=== PATIENT | female | born 1965 | race Caucasian/White ===

== ENCOUNTER 2021-03-26 10:10 | Emergency (ER) | payer MEDICARE, MEDICAID, SELFPAY ==
[2021-03-26 10:32] VITALS: BP 123/87; PULSE 84; RESP 16; TEMP 36.8; O2SAT 100; BMI 25.4
--- NOTE | 2021-03-26 10:44 | XR_ITS ---
WS: [id number] Portable AP upright chest, 03/26/2021 Clinical Data: htn Comparison: None. Findings: No nodules, masses or effusions are seen. The heart is normal. The pulmonary vascularity is not increased. No pneumonia or pneumothorax is seen. XR/XR chest 1V portable [id number] Impression: Negative chest.
--- NOTE | 2021-03-26 10:45 | ECG_ITS ---
[facility] Test Date: 2021-03-26 Pat Name: Beth Trinh Department: Room: Gender: Female History Instructor: : 1965 Requested By: Joselo Delgado Order Number: [id number] Simone MD: Radha Bradley M.D. Measurements Intervals [place] Rate: 80 P: 60 AL: 163 QRS: 31 QRSD: 79 T: 52 QT: 385 QTc: 446 Interpretive Statements SINUS RHYTHM POSSIBLE LEFT ATRIAL ENLARGEMENT [-0.1mV P-WAVE IN V1/V2] LEFT VENTRICULAR HYPERTROPHY AND ST-T CHANGE [VOLTAGE CRITERIA PLUS ST/T ABNORMALITY] No previous ECG available for comparison Electronically Signed On 03-26-2021 16:03:25 MEDICAL REGISTRAR by Radha Bradley M.D. [id number]
--- NOTE | 2021-03-26 11:02 | W.ED.GENADLT ---
HPI - General Adult General: Chief complaint: General Medical Stated complaint: HTN/ GUERRA/ BLURRED VISION/ SOB Time Seen by Provider: 03/26/21 10:38 History of Present Illness: HPI narrative: Patient arrives via ambulance with complaint of hypertension. Patient states that she was diagnosed with some carotid stenosis 6 months ago and a tortuous right carotid artery. Patient feels that surgery needs to be done presently cardiology said the need to wait to do any surgery. She believes that her hypertension is were directly related to this carotid artery problem. Patient is a COPD her who continue to smoke. Patient denies any increased shortness of breath, chest pain or other related symptoms. Onset (ago): week(s) Associated symptoms: Reports no associated symptoms; Deny rash or vomiting Review of Systems Eyes: Denies: eye discharge ENMT: Denies: throat pain, oral sores or nasal congestion Card: Reports: other (Hypertension) Resp: Reports: non-productive cough; Denies: wheezing or stridor GI: Denies: vomiting or diarrhea Skin/Breast: Denies: rash PFSH ED PFSH: Medical History Anxiety Social History Smoking and tobacco status: current every day smoker cigarettes Alcohol intake: current Alcohol intake frequency: holidays/special occasions only Physical Exam Const: COMMON NORMALS: no acute distress (Child appears very well is playful in no distress) GENERAL APPEARANCE: cooperative HENMT: COMMON NORMALS: normocephalic, external ears normal, EAC's normal, TM's normal bilaterally and Normal external nose present HEAD & SCALP: normal to inspection and normocephalic FACE & SINUS: normal facial exam NOSE: Normal external nose present and No nasal discharge present EXTERNAL EAR: Yes external ears normal EXTERNAL AUDITORY CANAL: EAC's normal TYMPANIC MEMBRANE: TM's normal bilaterally MOUTH: Normal oral and palatal mucosa present THROAT: posterior oropharynx normal Eye: COMMON NORMALS: conjunctivae normal CONJUNCTIVA: Yes conjunctivae normal Lymph: LYMPHATIC: no lymphadenopathy noted Chest: COMMONS NORMALS: normal inspection of the chest Resp: COMMON NORMALS: normal respiratory effort, No retractions, No use of accessory muscles and clear to auscultation bilaterally AUSCULTATION: clear to auscultation bilaterally Cardio: COMMON NORMALS: regular rate and regular rhythm RATE: regular rate RHYTHM: regular rhythm GI: COMMON NORMALS: Normal to inspection, nondistended, normoactive bowel sounds present Extremity: COMMON NORMALS: normal to inspection Skin: COMMON NORMALS: no rashes or lesions noted GENERAL SKIN EXAM: no rashes or lesions noted Course Vital Signs: Vital signs: Vital Signs Temperature 98.2 F 03/26/21 10:32 Pulse Rate 78 03/26/21 12:47 Respiratory Rate 16 03/26/21 12:47 Blood Pressure 147/105 03/26/21 12:47 Pulse Oximetry 98 03/26/21 12:47 MDM - General Adult MDM Narrative: Medical decision making narrative: Patient presents with hypertension today. Patient states that her blood pressures been going up for the last few weeks. Patient states she also has carotid stenosis would like to have surgery done today even though she was evaluated by airbrush artist and was told to do a repeat carotid Doppler ultrasound in 6 months more time from previous evaluation. Patient is a smoker does have diagnosed COPD. Patient denies chest pain nausea vomiting. Discussed case with Dr. Oliver. Does have chronic low back pain also patient given Celebrex here in ER for back pain and clonidine for blood pressure and given prescription for lisinopril 5 mg daily and instructed follow-up with her primary care provider at [place] in the next week. Lab Data: Labs: Lab Results 03/26/21 03/26/21 03/26/21 11:02 11:02 11:02 WBC 10.0 10^3/uL 10^3 /uL (4.0-10.0) RBC 5.44 10^6/uL H 10 ^6/uL (4.1-5.3) Hgb 16.6 g/dL H g/dL (11.5-15.3) Hct 51.5 % H % (37.0-47.0) MCV 94.7 fl fl (81-99) MCH 30.5 pg pg (28.0-34.0) MCHC 32.2 g/dL g/dL (30.0-36.0) RDW 13.4 % % (12.1-15.1) Plt Count 403 10^3/cmm H 10 ^3/cmm (130-400) MPV 10.2 fL fL (7.4-10.4) Neut % (Auto) 59.4 % % Lymph % (Auto) 30.4 % % [place] % (Auto) 6.6 % % Eos % (Auto) 2.6 % % Baso % (Auto) 0.9 % % Neut # (Auto) 5.93 10^3/uL 10^3 /uL (1.8-7.7) Lymph # (Auto) 3.0 10^3/uL 10^3/ uL (0.8-4.8) [place] # (Auto) 0.7 10^3/uL 10^3/ uL (0.2-0.9) Eos # (Auto) 0.3 10^3/uL 10^3/ uL (0.0-0.8) Baso # (Auto) 0.1 10^3/uL 10^3/ uL (0.0-0.1) Nucleated RBC % (a uto) 0 % % Nucleated RBCs # 0.0 /100WBC /100W BC PT 14.00 SECONDS SEC ONDS (12.1-14.9) INR 1.05 (0.8-1.2) Sodium 145 mmol/L mmol/L (136-145) Potassium 3.8 mmol/L mmol/L (3.5-5.1) Chloride 111 mmol/L H mmol /L (98-107) Carbon Dioxide 22 mmol/L mmol/L (22-29) Anion Gap 15.8 (5-19) BUN 7 mg/dL mg/dL (6-20) Creatinine 0.5 mg/dL mg/dL (0.5-0.9) GFR Calculation 128.1 mL/min mL/m in (90-130) Glucose 90 mg/dL mg/dL (65-115) Calculated Osmolal ity 298 mOsm/kg H mOs m/kg (285-295) Calcium 7.4 mg/dL L mg/dL (8.5-10.5) Total Bilirubin 0.2 mg/dL mg/dL (0.15-1.2) AST 15 U/L U/L (0-32) ALT 13 U/L U/L (0-33) Alkaline Phosphata se 88 IU/L IU/L (35-105) Troponin T Baselin e Total Protein 5.2 g/dL L g/dL (6.6-8.7) Albumin 3.5 g/dL g/dL (3.5-5.2) Globulin 1.7 g/dL g/dL (1.3-4.6) 03/26/21 03/26/21 11:02 11:29 WBC RBC Hgb Hct MCV MCH MCHC RDW Plt Count MPV Neut % (Auto) Lymph % (Auto) [place] % (Auto) Eos % (Auto) Baso % (Auto) Neut # (Auto) Lymph # (Auto) [place] # (Auto) Eos # (Auto) Baso # (Auto) Nucleated RBC % (a uto) Nucleated RBCs # PT INR Sodium Potassium Chloride Carbon Dioxide Anion Gap BUN Creatinine GFR Calculation Glucose Calculated Osmolal ity Calcium Total Bilirubin AST ALT Alkaline Phosphata se Troponin T Baselin e Cancelled 6 ng/L ng/L (0-10) Total Protein Albumin Globulin EKG Data^: EKG 1: EKG interpretation date: 03/26/21 EKG interpretation time: 10:53 Computer generated interpretation: Chest X-Ray 03/26/21 10:44 Impression: Negative chest. Sinus rhythm. Possible left atrial enlargement. Ventricular rate 80 bpm TN interval 163 ms QRS duration 79 ms QT is 385 ms Discharge Plan Discharge Patient Disposition: Home Clinical Impression: Tobacco use disorder Hypertension Qualifiers: Hypertension type: primary hypertension Qualified Code(s): I10 - Essential (primary) hypertension COPD (chronic obstructive pulmonary disease) Qualifiers: COPD type: emphysema Emphysema type: unilateral Qualified Code(s): J43.0 - Unilateral pulmonary emphysema [MacLeod's syndrome] Condition: Stable Prescriptions: New lisinopril 5 mg tablet 5 mg PO DAILY Qty: 14 RF: 0 No Action pantoprazole 40 mg tablet,delayed release (DR/EC) 40 mg PO DAILY Qty: 30 RF: 11 albuterol sulfate 90 mcg/actuation HFA aerosol inhaler 2 puff inhalation Q6H PRN (Reason: Shortness Of Breath) RF: 0 Myrbetriq 50 mg tablet extended release 24 hr 50 mg PO DAILY PRN (Reason: rx last filled in 2018-pt states takes prn) RF: 0 metoprolol succinate 25 mg tablet extended release 24 hr 25 mg PO DAILY RF: 0 Trelegy Ellipta 100-62.5-25 mcg blister with device 1 inh inhalation Q24H Qty: 60 RF: 0 ondansetron HCl 4 mg tablet 4 mg PO TID PRN (Reason: Nausea And Vomiting) RF: 0 albuterol sulfate 2.5 mg /3 mL (0.083 %) Solution For Nebulization 2.5 mg INHALATION QID PRN (Reason: Shortness Of Breath) RF: 0 Aspir-81 81 mg Tablet,Delayed Release (Dr/Ec) 81 mg PO .2-3 TIMES A WEEK RF: 0 meloxicam 15 mg tablet 15 mg PO DAILY PRN (Reason: rx last filled 06/16/20 30d/s pt states takes prn) RF: 0 Discharge Orders: Discharge ED (Routine); Ordered 03/26/21 Ordered By: Joselo Delgado Discharge Diet: Usual diet Discharge Activity: Increase activity as tolerated Patient Instructions: How to Stop Smoking (ED), Chronic Hypertension (ED) Activity Restrictions/Additional Instructions: Follow-up with medical provider as directed. Take medications as prescribed. Return to the ER or your medical provider if condition worsens. Please read and understand discharge instructions. If any questions ask please. Try to quit smoking if possible. Follow-up with [place] [facility] this coming week. Check blood pressures twice a day and make sure medication is working well. Coding Level of Care Code ED Pulmonary Specialist for Bryson Fwd Exam Comprehensive
[2021-03-26] MEDS: sodium chloride 0.9% 500 ML 999 ML IV (11:06)
[2021-03-26 11:11] VITALS: BP 163/114; PULSE 94; RESP 13; O2SAT 93
[2021-03-26 11:17] LABS: Basophils # 0.1 10^3/uL (0.0-0.1); Basophils % 0.9 %; Eosinophils # 0.3 10^3/uL (0.0-0.8); Eosinophils % 2.6 %; Hematocrit 51.5 % (37.0-47.0); Hemoglobin 16.6 g/dL (11.5-15.3); Lymphocytes % 30.4 %; Mean Corpuscular HGB Conc 32.2 g/dL (30.0-36.0); Mean Corpuscular Hemoglobin 30.5 pg (28.0-34.0); Mean Corpuscular Volume 94.7 fl (81-99); Mean Platelet Volume 10.2 fL (7.4-10.4); Monocytes # 0.7 10^3/uL (0.2-0.9); Monocytes % 6.6 %; Neutrophils # 5.93 10^3/uL (1.8-7.7); Neutrophils % 59.4 %; Nucleated Red Blood Cells % 0 %; Platelet Count 403 10^3/cmm (130-400); Red Blood Count 5.44 10^6/uL (4.1-5.3); Red Cell Distribution Width 13.4 % (12.1-15.1)
[2021-03-26 11:34] LABS: INR 1.05 (0.8-1.2)
[2021-03-26] MEDS: CELEcoxib 200 mg Capsule 400 MG PO (11:37)
[2021-03-26 11:44] LABS: Alanine Aminotransferase 13 U/L (0-33); Albumin Level 3.5 g/dL (3.5-5.2); Alkaline Phosphatase 88 IU/L (35-105); Blood Urea Nitrogen 7 mg/dL (6-20); Calcium 7.4 mg/dL (8.5-10.5); Carbon Dioxide 22 mmol/L (22-29); Chloride 111 mmol/L (98-107); Globulin 1.7 g/dL (1.3-4.6); Glomerular Filtration Rate 128.1 mL/min (90-130); Glucose 90 mg/dL (65-115); Osmolality Calculated 298 mOsm/kg (285-295); Sodium 145 mmol/L (136-145); Total Bilirubin 0.2 mg/dL (0.15-1.2); Total Protein 5.2 g/dL (6.6-8.7)
[2021-03-26 11:49] LABS: Anion Gap 15.8 (5-19); Potassium 3.8 mmol/L (3.5-5.1)
[2021-03-26 11:50] LABS: Aspartate Amino Transferase 15 U/L (0-32)
--- NOTE | 2021-03-26 11:57 | PC.PHAR ---
pt states she takes care of her own medications-pt states she takes her metoprolol er everyday states srikanth fernandez mails her the medication-wlagreen states they last filled 30d.s on 10/29/20-notes are made in the pharmacy comments
[2021-03-26 12:02] LABS: Troponin(5th) Baseline 6 ng/L (0-10)
[2021-03-26 12:37] VITALS: BP 168/114
[2021-03-26] MEDS: cloNIDine 0.1 mg Tablet 0.2 MG PO (12:37)
[2021-03-26 12:47] VITALS: BP 147/105; PULSE 78; RESP 16; O2SAT 98
== END 2021-03-26 13:12 | disposition home or self-care (01) ==
PROVIDERS: Emergency Provider Nurse Practitioner Family
DX: I10 Essential (primary) hypertension (principal); J43.0 Unilateral pulmonary emphysema [MacLeod's syndrome]; Z79.82 Long term (current) use of aspirin; F17.210 Nicotine dependence, cigarettes, uncomplicated
CPT/HCPCS: 71045; 80053; 84484; 85025; 85610; 93005; 99284; J7040

== ENCOUNTER 2023-03-05 16:14 | Emergency (ER) | payer MEDICARE, MEDICAID, SELFPAY ==
[2023-03-05 16:26] VITALS: BP 172/101; PULSE 90; RESP 19; TEMP 37.1; O2SAT 98; BMI 30.2
[2023-03-05 17:00] VITALS: BP 140/73; PULSE 89; RESP 18; O2SAT 95
--- NOTE | 2023-03-05 17:14 | W.ED.ABDPA2 ---
HPI - Abdominal Pain General: Chief Complaint: Abdominal Pain Stated Complaint: left side abdomin pain Time Seen by Provider: 03/05/23 16:30 History of Present Illness: 57-year-old female presents emergency room with left upper quadrant pain and left rib cage pain for about 6 weeks. Patient reveals that the pain started about 6 years ago after undergoing cardiac procedure. She described the pain as sharp sensation with severity of 8 out of 10 mostly along the left rib cage and right upper quadrant tenderness. Denies any recent fall or injury. Denies any cough, coughing up blood or vomiting blood. Wrist pain with movement and deep breathing. Associated Symptoms: Reports nausea and vomiting; Denies belching, chills, GI cramping, diarrhea, excessive flatus and fever(s) Review of Systems General: Reports: 10 or more systems reviewed and unremarkable except in HPI and below Const: Denies: fever(s), chills, body aches, change in appetite, fatigue or malaise Card: Reports: chest pain; Denies: palpitations Resp: Denies: dyspnea, productive cough, non-productive cough, wheezing, stridor, pain on inspiration or change in phlegm color GI: Reports: abdominal pain, nausea and vomiting; Denies: early satiety, diarrhea, GI cramping, belching or excessive flatus : Denies: flank pain, difficulty voiding or urinary frequency Musc: Reports: joint warmth; Denies: neck pain, back pain, extremity pain, joint swelling, limited range of motion or muscle cramps PFSH ED PFSH: Medical History Anxiety Social History Smoking and tobacco/nicotine status: current every day tobacco/nicotine user cigarettes Alcohol intake: current Alcohol intake frequency: holidays/special occasions only Physical Exam Const: COMMON NORMALS: no acute distress, average body habitus, patient oriented x3, no limitations, healthy appearing, alert and well nourished HENMT: COMMON NORMALS: normocephalic, atraumatic, hearing grossly normal bilaterally, external ears normal, EAC's normal, TM's normal bilaterally, Normal external nose present, Normal nasal mucous membranes and turbinates present, moist oral mucous membranes, oropharynx normal, dentition normal and gingiva normal HEAD & SCALP: normocephalic and atraumatic NOSE: Normal external nose present and Normal nasal mucous membranes and turbinates present EXTERNAL EAR: Yes external ears normal EXTERNAL AUDITORY CANAL: EAC's normal TYMPANIC MEMBRANE: TM's normal bilaterally Eye: COMMON NORMALS: Equal, round and reactive pupils present, EOMs intact bilaterally, conjunctivae normal, no scleral icterus, no papilledema, normal visual koo by confrontation and fundi normal bilaterally CONJUNCTIVA: Yes conjunctivae normal PUPIL: Yes Equal, round and reactive pupils present DIRECT OPHTHALMOSCOPY: Yes no papilledema and Yes fundi normal bilaterally Neck/C-Spine: COMMON NORMALS: no JVD Chest: COMMONS NORMALS: normal inspection of the chest, normal palpation of entire chest wall, normal inspection of the breasts and normal palpation of the breasts CHEST: Yes Symmetrical chest wall rise, No crepitus, Yes localized rib tenderness with anteroposterior compression Location: 8th rib, 9th rib and 10th rib, No Sternal flail present, No mass, No sinus tracts, Yes tenderness, No abrasion, No Ecchymosis present, No wounds, No Vascular access present and No Pacemaker present Breast/axilla inspection: Yes normal inspection of the breasts BREAST/AXILLA PALPATION: Yes normal palpation of the breasts Resp: COMMON NORMALS: normal respiratory effort, No retractions, No use of accessory muscles, clear to auscultation bilaterally and percussion normal AUSCULTATION: clear to auscultation bilaterally PERCUSSION: percussion normal Cardio: COMMON NORMALS: no JVD, regular rate, regular rhythm, S1 normal heart sound present, S2 normal heart sound present, No gallops present (Cardio), No clicks present (Cardio), No murmurs present (Cardio), No rub (Cardio) and Peripheral pulses 2+ throughout RATE: regular rate RHYTHM: regular rhythm HEART SOUNDS: S1 normal heart sound present and S2 normal heart sound present PERIPHERAL PULSES: Peripheral pulses 2+ throughout Extremity: COMMON NORMALS: normal to inspection, full ROM, capillary refill normal, no joint enlargement, no clubbing, cyanosis or edema, no calf tenderness and no pedal edema Neuro: COMMON NORMALS: patient oriented x3 SENSORIUM/ORIENTATION: Yes alert Course Vital Signs: Vital signs: Vital Signs Temperature 98.8 F 03/05/23 16:26 Pulse Rate 89 11/11/23 17:00 Respiratory Rate 18 03/05/23 19:25 Blood Pressure 127/85 03/05/23 19:25 Pulse Oximetry 97 03/05/23 19:25 Oxygen Delivery Me thod Room Air 03/05/23 16:26 MDM - Abdominal Pain Medical Decision Making Patient made comfortable emergency room and had extensive work-up including CBC, CMP, x-ray and CAT scan done. No acute findings on the CT on the CAT scan. I discussed the CT and x-ray finding with the patient. She will be discharged home with pain medication and muscle relaxant. Follow-up PCP recommended for further evaluation and treatment. Differential Diagnosis Likely abdominal pain, acute appendicitis, calculus of kidney, constipation, diverticulitis, endometriosis, gastroenteritis, pancreatitis and small bowel obstruction Lab Data 03/05/23 17:04 03/05/23 17:04 Labs/Radiology: Radiology Impressions Chest X-Ray 03/05/23 18:09 IMPRESSION: No acute infiltrate. Abdomen/Pelvis CT 03/05/23 18:19 IMPRESSION: 1. Paraesophageal hiatal hernia 2. No acute findings. COMMENTS: Consistent with the [place] [employer]'s Incidental Findings Committee white paper (J Am Dionne Radiol 2018): Any incidental renal lesion less than 1 cm or classified as too small to characterize, or any incidental cystic renal lesion characterized as simple-appearing, is likely benign. No follow-up imaging is recommended for these lesions per consensus recommendations based on imaging criteria. Laboratory Results WBC 10.90 10^3/uL (3.29-11.43) 03/05/23 17:04 RBC 4.96 10^6/uL (3.85-5.65) 03/05/23 17:04 Hgb 15.20 g/dL (11.27-16.99) 03/05/23 17:04 Hct 47.6 % (36-47) H 03/05/23 17:04 MCV 96.0 fl (85-98) 03/05/23 17:04 MCH 30.6 pg (27-33) 03/05/23 17:04 MCHC 31.9 g/dL (30-55) 03/05/23 17:04 RDW 13.2 % (12.1-15.1) 03/05/23 17:04 Plt Count 479 10^3/cmm (157-399) H 03/05/23 17:04 MPV 10.8 fL (7.4-10.4) H 03/05/23 17:04 Neut % (Auto) 50.1 % 03/05/23 17:04 Lymph % (Auto) 33.9 % 03/05/23 17:04 [place] % (Auto) 6.5 % 03/05/23 17:04 Eos % (Auto) 7.9 % 03/05/23 17:04 Baso % (Auto) 1.3 % 03/05/23 17:04 Neut # (Auto) 5.46 10^3/uL (1.8-7.7) 03/05/23 17:04 Lymph # (Auto) 3.7 10^3/uL (0.8-4.8) 03/05/23 17:04 [place] # (Auto) 0.7 10^3/uL (0.2-0.9) 03/05/23 17:04 Eos # (Auto) 0.9 10^3/uL (0.0-0.8) H 03/05/23 17:04 Baso # (Auto) 0.1 10^3/uL (0.0-0.1) 03/05/23 17:04 Nucleated RBC % (auto) 0 % 03/05/23 17:04 Nucleated RBCs # 0.0 /100WBC 03/05/23 17:04 Sodium 139 mmol/L (136-145) 03/05/23 17:04 Potassium 3.9 mmol/L (3.5-5.1) 03/05/23 17:04 Chloride 103 mmol/L (98-107) 03/05/23 17:04 Carbon Dioxide 22 mmol/L (22-29) 03/05/23 17:04 Anion Gap 17.9 (5-19) 03/05/23 17:04 BUN 22 mg/dL (6-20) H 03/05/23 17:04 Creatinine 1.1 mg/dL (0.5-0.9) H 03/05/23 17:04 GFR Calculation 51.2 mL/min (90-130) L 03/05/23 17:04 Glucose 153 mg/dL (65-115) H 03/05/23 17:04 Calculated Osmolality 294 mOsm/kg (285-295) 03/05/23 17:04 Calcium 9.9 mg/dL (8.5-10.5) 03/05/23 17:04 Total Bilirubin 0.2 mg/dL (0.15-1.2) 03/05/23 17:04 AST 12 U/L (0-32) 03/05/23 17:04 ALT 11 U/L (0-33) 03/05/23 17:04 Alkaline Phosphatase 154 U/L (35-105) H 03/05/23 17:04 Total Protein 7.5 g/dL (6.6-8.7) 03/05/23 17:04 Albumin 4.4 g/dL (3.5-5.2) 03/05/23 17:04 Globulin 3.1 g/dL (1.3-4.6) 03/05/23 17:04 Lipase 42 U/L (13-60) 03/05/23 17:04 Urine Color Colorless (Yellow) 03/05/23 19:20 Urine Appearance Clear (CLEAR) 03/05/23 19:20 Urine pH 5 (5-7) 03/05/23 19:20 Ur Specific [place] 1.005 (1.005-1.030) 03/05/23 19:20 Urine Protein Trace (Negative) 03/05/23 19:20 Urine Glucose (UA) Norm (Normal) 03/05/23 19:20 Urine Ketones Negative (Negative) 03/05/23 19:20 Urine Blood 2+ (Negative) H 03/05/23 19:20 Urine Nitrate Negative (Negative) 03/05/23 19:20 Urine Bilirubin Neg (Negative) 03/05/23 19:20 Urine Urobilinogen Neg mg/dL (Negative) 03/05/23 19:20 Ur Leukocyte Esterase Trace (Negative) H 03/05/23 19:20 Urine RBC Rare /hpf (0-2) 03/05/23 19:20 Urine WBC None /hpf (0-5) 03/05/23 19:20 Ur Squamous Epith Cells Rare /hpf (0-5) 03/05/23 19:20 Amorphous Sediment Not Reportable 03/05/23 19:20 Urine Bacteria None /hpf (NONE) 03/05/23 19:20 XR interpretation done by ED provider, pending radiology final review Discharge Plan Discharge Patient Disposition: Home Clinical Impression: Chronic pain, Acute chest wall pain Condition: Stable Prescriptions: New tramadol 50 mg tablet 50 mg PO Q8H PRN (Reason: pain) Qty: 14 0RF cyclobenzaprine 5 mg tablet 5 mg PO BID PRN (Reason: muscle spasm) Qty: 14 0RF No Action pantoprazole 40 mg tablet,delayed release (DR/EC) 40 mg PO DAILY Qty: 30 11RF albuterol sulfate 90 mcg/actuation HFA aerosol inhaler 2 puff inhalation Q6H PRN (Reason: Shortness Of Breath) Myrbetriq 50 mg tablet extended release 24 hr 50 mg PO DAILY PRN (Reason: rx last filled in 2018-pt states takes prn) metoprolol succinate 25 mg tablet extended release 24 hr 25 mg PO DAILY Trelegy Ellipta 100-62.5-25 mcg blister with device 1 inh inhalation Q24H Qty: 60 0RF ondansetron HCl 4 mg tablet 4 mg PO TID PRN (Reason: Nausea And Vomiting) albuterol sulfate 2.5 mg /3 mL (0.083 %) Solution For Nebulization 2.5 mg INHALATION QID PRN (Reason: Shortness Of Breath) Aspir-81 81 mg Tablet,Delayed Release (Dr/Ec) 81 mg PO .2-3 TIMES A WEEK meloxicam 15 mg tablet 15 mg PO DAILY PRN (Reason: rx last filled 06/16/20 30d/s pt states takes prn) lisinopril 5 mg tablet 5 mg PO DAILY Qty: 14 0RF Discharge Orders: Discharge ED (Routine); Ordered 03/05/23 Ordered By: Harley Mosquera Discharge Diet: Advance as tolerated Discharge Activity: Resume usual activity Patient Instructions: Opioid Safety, Pain Management Coding Level of Care Code ED Wire Stockkeeper for Bryson Moseley
[2023-03-05 17:17] LABS: Basophils # 0.1 10^3/uL (0.0-0.1); Basophils % 1.3 %; Eosinophils # 0.9 10^3/uL (0.0-0.8); Eosinophils % 7.9 %; Hematocrit 47.6 % (36-47); Lymphocytes # 3.7 10^3/uL (0.8-4.8); Lymphocytes % 33.9 %; Mean Corpuscular HGB Conc 31.9 g/dL (30-55); Mean Corpuscular Hemoglobin 30.6 pg (27-33); Mean Platelet Volume 10.8 fL (7.4-10.4); Monocytes # 0.7 10^3/uL (0.2-0.9); Monocytes % 6.5 %; Neutrophils # 5.46 10^3/uL (1.8-7.7); Neutrophils % 50.1 %; Nucleated Red Blood Cells % 0 %; Platelet Count 479 10^3/cmm (157-399); Red Blood Count 4.96 10^6/uL (3.85-5.65); Red Cell Distribution Width 13.2 % (12.1-15.1)
[2023-03-05 17:18] VITALS: RESP 18; O2SAT 95
[2023-03-05] MEDS: ondansetron 2 mg/ML SDV 2 mL 4 MG IVP (17:18)
[2023-03-05] MEDS: morphine 4 mg/mL SDV 1 mL IVP (17:18)
[2023-03-05 17:37] LABS: Alanine Aminotransferase 11 U/L (0-33); Albumin Level 4.4 g/dL (3.5-5.2); Alkaline Phosphatase 154 U/L (35-105); Anion Gap 17.9 (5-19); Aspartate Amino Transferase 12 U/L (0-32); Blood Urea Nitrogen 22 mg/dL (6-20); Calcium 9.9 mg/dL (8.5-10.5); Carbon Dioxide 22 mmol/L (22-29); Chloride 103 mmol/L (98-107); Globulin 3.1 g/dL (1.3-4.6); Glomerular Filtration Rate 51.2 mL/min (90-130); Glucose 153 mg/dL (65-115); Lipase 42 U/L (13-60); Osmolality Calculated 294 mOsm/kg (285-295); Potassium 3.9 mmol/L (3.5-5.1); Sodium 139 mmol/L (136-145); Total Bilirubin 0.2 mg/dL (0.15-1.2); Total Protein 7.5 g/dL (6.6-8.7)
--- NOTE | 2023-03-05 18:09 | XRR_ITS ---
PROCEDURE INFORMATION: Exam: XR Chest Exam date and time: 03/05/2023 6:13 PM Age: 57 years old Clinical indication: Chest wall pain and intercostal; Prior surgery; Surgery date: 1-6 months; Patient HX: Left lower/lateral chest pain; Cabg with pericardial cyst removal x 6 weeks ago; SOB; Smoker x 40+ yrs; HX copd, asthma, and emphysema TECHNIQUE: Imaging protocol: Radiologic exam of the chest. Views: 1 view. COMPARISON: CR XR chest 1V portable [id number] 03/26/2021 10:56 AM FINDINGS: Lungs: Visualized portions of the lungs are clear. Pleural spaces: Unremarkable. No pleural effusion. No pneumothorax. Heart/Mediastinum: Heart is within normal limits of size. Bones/joints: Sternotomy wires and mediastinal surgical clips are present, consistent with coronary arterial bypass grafting. There are degenerative changes in the left shoulder. XR/XR chest 1V portable [id number] IMPRESSION: No acute infiltrate.
--- NOTE | 2023-03-05 18:19 | CTR_ITS ---
PROCEDURE INFORMATION: Exam: CT Abdomen And Pelvis With Contrast Exam date and time: 03/05/2023 6:32 PM Age: 57 years old Clinical indication: Abdominal pain; Localized; Left upper quadrant (luq); Prior surgery; Surgery date: 1-6 months; Surgery type: Open heart for epicardial cyst November 2022. Gb. Exploratory laparotomy; Patient HX: C/O luq pain. History of hiatal hernia and diverticulitis. ; Additional info: Abd pain TECHNIQUE: Imaging protocol: Computed tomography of the abdomen and pelvis with contrast. Radiation optimization: All CT scans at this facility use at least one of these dose optimization techniques: automated exposure control; mA and/or kV adjustment per patient size (includes targeted exams where dose is matched to clinical indication); or iterative reconstruction. Contrast material: OMNI 350; Contrast volume: 100 ml; Contrast route: INTRAVENOUS (IV); REPORTING DATA: Count of CT and Cardiac NM exams in prior 12 months: This patient has received 0 known CTs and 0 known cardiac nuclear medicine studies in the 12 months prior to the current study. COMPARISON: CR (CHEST, ) 03/05/2023 6:13 PM RADIATION DOSE METRICS: Total DLP (mGy-cm): 754.64 FINDINGS: Mediastinal space: There is a small paraesophageal gastric hernia. Liver: 7 mm benign-appearing simple cyst right lobe of the liver. Gallbladder and bile ducts: There has been a cholecystectomy. Common bile duct mildly dilated to 10 mm, not unusual post cholecystectomy. There is mild intrahepatic prominence of the biliary tree. Pancreas: The pancreas is normal. Spleen: The spleen is normal. Adrenal glands: The adrenal glands are normal. Kidneys and ureters: There is a tiny cortical hypodensity in each kidney, most likely cysts but too small to definitively characterize by CT scanning. There is some focal cortical scarring in the mid right kidney. There is no evidence of hydronephrosis. There is no evidence of renal or ureteral calcifications. Stomach and bowel: Mild diverticulosis is present in the distal colon. There is no evidence of colitis/diverticulitis. There is no evidence of intestinal obstruction. Appendix: A normal appendix is identified. Intraperitoneal space: There is no evidence of free intraperitoneal fluid. Vasculature: The aorta demonstrates mild atherosclerotic calcification. There is no evidence of an abdominal aortic aneurysm. Lymph nodes: There is no evidence of lymphadenopathy. Urinary bladder: Unremarkable as visualized. Reproductive: Unremarkable as visualized. Bones/joints: Unremarkable. No acute fracture. Soft tissues: Unremarkable. CT/CT abdomen pelvis w con* [id number] IMPRESSION: 1. Paraesophageal hiatal hernia 2. No acute findings. COMMENTS: Consistent with the [place] [employer]'s Incidental Findings Committee white paper (J Am Dionne Radiol 2018): Any incidental renal lesion less than 1 cm or classified as too small to characterize, or any incidental cystic renal lesion characterized as simple-appearing, is likely benign. No follow-up imaging is recommended for these lesions per consensus recommendations based on imaging criteria.
[2023-03-05] MEDS: iohexol 350 mg/mL 500 mL Btl (per mL) IV (18:37)
[2023-03-05 19:25] VITALS: BP 127/85; RESP 18; O2SAT 97
[2023-03-05] MEDS: ketorolac 30 mg/mL INJ IVP (19:26)
[2023-03-05 19:42] LABS: Add Urine Microscopic? YES; Bilirubin Urine Neg (Negative); Blood Urine 2+ (Negative); Glucose Urine UA Norm (Normal); Ketones Urine Negative (Negative); Leukocyte Esterase Urine Trace (Negative); Nitrate Urine Negative (Negative); Protein Urine Trace (Negative); Specific Gravity, Urine 1.005 (1.005-1.030); Urine Appearance Clear (CLEAR); Urine Color Colorless (Yellow); Urobilinogen Urine Neg (Negative); pH Urine 5 (5-7)
[2023-03-05 19:43] LABS: Add Urine Culture? No; RBC Urine RARE /hpf (0-2); Squamous Epithelial Cell Urine RARE /hpf (0-5)
== END 2023-03-05 20:02 | disposition home or self-care (01) ==
PROVIDERS: Emergency Provider Family Medicine
DX: G89.29 Other chronic pain (principal); R07.89 Other chest pain; Z79.82 Long term (current) use of aspirin; F17.210 Nicotine dependence, cigarettes, uncomplicated
CPT/HCPCS: 71045; 74177; 80053; 81001; 83690; 85025; 96374; 96375; 99285; J1885; J2270; J2405; Q9967

== ENCOUNTER 2023-04-09 18:21 | Emergency (ER) | payer MEDICARE, MEDICAID, SELFPAY ==
--- NOTE | 2023-04-09 18:24 | XRR_ITS ---
PROCEDURE INFORMATION: Exam: XR Chest Exam date and time: 04/09/2023 6:48 PM Age: 57 years old Clinical indication: Chest pressure; Patient HX: Chest pain TECHNIQUE: Imaging protocol: Radiologic exam of the chest. Views: 1 view. COMPARISON: CR (CHEST, ) 03/05/2023 6:13 PM FINDINGS: Lungs: Lungs are clear bilaterally. Pleural spaces: No pleural effusion. No pneumothorax. Heart/Mediastinum: The cardiac silhouette and mediastinal contours are unremarkable. Bones/joints: Bones are diffusely osteopenic. Degenerative changes in the spine and shoulders. Poststernotomy changes in the chest. XR/XR chest 1V portable [id number] IMPRESSION: 1. No acute cardiopulmonary process. 2. Incidental/nonacute findings are listed in the report.
[2023-04-09 18:28] VITALS: BP 110/67; PULSE 78; RESP 20; TEMP 36.6; O2SAT 96
--- NOTE | 2023-04-09 18:28 | ECG_ITS ---
[facility] Test Date: 2023-04-09 Pat Name: Beth Trinh Department: Room: Gender: Female Gamma Operator: : 1965 Requested By: Kaiden Diaz Order Number: [id number] Reading MD: Kellie Varela M.D. Measurements Intervals [place] Rate: 87 P: 67 [place]: 168 QRS: 28 QRSD: 83 T: 44 QT: 347 QTc: 419 Interpretive Statements SINUS RHYTHM Compared to ECG 03/26/2021 10:52:06 Left ventricular hypertrophy no longer present ST (T wave) deviation no longer present Electronically Signed On 04-10-2023 19:36:21 ROUSTABOUT CREW LEADER by Kellie Varela M.D. [id number] f
[2023-04-09] MEDS: aspirin 81 mg Chew Tablet 324 MG PO (18:48)
[2023-04-09 18:54] LABS: Basophils # 0.1 10^3/uL (0.0-0.1); Basophils % 1.1 %; Eosinophils # 0.5 10^3/uL (0.0-0.8); Eosinophils % 4.5 %; Hematocrit 43.6 % (36-47); Lymphocytes # 3.6 10^3/uL (0.8-4.8); Lymphocytes % 34.9 %; Mean Corpuscular HGB Conc 31.9 g/dL (30-55); Mean Corpuscular Hemoglobin 30.2 pg (27-33); Mean Corpuscular Volume 94.6 fl (85-98); Mean Platelet Volume 9.7 fL (7.4-10.4); Monocytes # 0.7 10^3/uL (0.2-0.9); Neutrophils # 5.42 10^3/uL (1.8-7.7); Neutrophils % 52.3 %; Nucleated Red Blood Cells % 0 %; Platelet Count 491 10^3/cmm (157-399); Red Blood Count 4.61 10^6/uL (3.85-5.65); Red Cell Distribution Width 12.9 % (12.1-15.1); White Blood Count 10.35 10^3/uL (3.29-11.43)
--- NOTE | 2023-04-09 18:54 | PC.NURSE ---
pt placed on ekg monitor
[2023-04-09 19:05] VITALS: BP 118/66; PULSE 80; O2SAT 97
[2023-04-09 19:07] LABS: INR 0.95 (0.8-1.2)
[2023-04-09 19:08] LABS: Partial Thromboplastin Time 30.9 SECONDS (23.9-36.7)
[2023-04-09 19:15] LABS: Troponin(5th) Baseline 8 ng/L (0-10)
--- NOTE | 2023-04-09 19:28 | W.ED.CHESTPA ---
HPI - Chest Pain General: Chief Complaint: Chest Pain Stated Complaint: CP Time Seen by Provider: 04/09/23 18:26 History of Present Illness: 57-year-old female presents to the emergency department with complaints of left-sided chest pain. She states that the chest pain started approximately 2 hours prior to arrival here in the emergency department and she states that it radiates to her left arm neck and left shoulder blade. She states she did feel like her heart was going very fast when she started having her chest pain. 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 She states she does smoke cigarettes daily. She denies nausea vomiting dizziness or lightheaded feeling. She states she does feel like she is having shortness of breath, and states that she feels like she is having intermittent hot flashes. She states she does currently feel slightly diaphoretic. She states her chest pain is a 4 out of 10 and she states nothing seems to make her pain better nothing seems to make it worse. Associated symptoms: Reports dyspnea and palpitations Review of Systems General: Reports: 10 or more systems reviewed and unremarkable except in HPI and below Card: Reports: chest pain and palpitations Resp: Reports: dyspnea PFSH ED PFSH: Medical History Anxiety Social History Smoking and tobacco/nicotine status: current every day tobacco/nicotine user cigarettes Alcohol intake: current Alcohol intake frequency: holidays/special occasions only Physical Exam Narrative: EXAM NARRATIVE: Constitutional: the patient appears well nourished and with normal development. Vital signs reviewed as documented. HENMT: Normocephalic, atraumatic. Extermal ears with normal appearance without drainage. Nose without drainage, normal appearance. Mucus membranes moist. Neck is supple, No jugular venous distension, trachea is midline, no appreciable carotid bruits. No lymphadenopathy. No meningeal signs. Flexion, extension and lateral rotation is without pain. Eyes: Pupils are equal, round, reactive to light and accommodation. No scleral icterus. Extra-ocular movement are intact. Thorax is symmetrical and with equal rise and fall with respirations. Resp: Lungs are clear to auscultation. No wheezes, rales, crackles or ronchi at present. Cardio: Regular rate and rhythm. Positive S1, S2. No appreciable murmurs, rubs or gallops. GI: Abdominal exam reveals normal bowel sounds to all quadrants. No organomegaly. No obvious palpable masses noted. No hepatomegally appreciated. Soft, nontender to palpation. Extremity: Extremities are non-edematous and both femoral and pedal pulses are 2+ and equal bilaterally. Moves all extremities well, sensation in all extremities. Neuro: Alert and oriented x4, person, place, time and situation. Cranial nerves II through XII are grossly intact, there is no focal neurological deficits that I can appreciate at present. Motor strength in the upper and lower extremities are equal and bilateral 5/5. Psych: Cooperative, calm, normal thought process, appropriate judgment. Skin: No lesions, rashes. No gross abnormalities noted. Back: Symmetrical, no obvious deformity, No CVA tenderness Course Reevaluation(s): Reevaluation #1: Improved epigastric discomfort after GI cocktail, I discussed the importance of follow-up with the patient's primary care provider I suspect this may be intermittent hormonal change given the patient's presentation with complaints of hot flashes. Time: 21:41 Vital Signs: Vital signs: Vital Signs Temperature 97.8 F 04/09/23 18:28 Pulse Rate 77 04/09/23 20:30 Respiratory Rate 20 H 04/09/23 20:30 Blood Pressure 117/64 04/09/23 20:30 Pulse Oximetry 93 04/09/23 20:30 Oxygen Delivery Me thod Room Air 04/09/23 19:05 MDM - Chest Pain Medical Decision Making Physical exam completed and documented, I will obtain serial cardiac enzymes, serial twelve-lead EKGs, chest x-ray, CBC, CMP, urinalysis, B-type natriuretic peptide, PT/PTT/INR, and a chest x-ray. I provide cardiac dose aspirin and reevaluate accordingly. I have reviewed any pervious and pertinent medical records for assist in obtaining beneficial medical information to improved the care and treatment of the patient. Medical Records I reviewed the patient's medical records. Lab Data I reviewed the patient's lab results. 04/09/23 18:48 04/09/23 18:48 Radiology Impressions Chest X-Ray 04/09/23 18:24 IMPRESSION: 1. No acute cardiopulmonary process. 2. Incidental/nonacute findings are listed in the report. Laboratory Results WBC 10.35 10^3/uL (3.29-11.43) 04/09/23 18:48 RBC 4.61 10^6/uL (3.85-5.65) 04/09/23 18:48 Hgb 13.90 g/dL (11.27-16.99) 04/09/23 18:48 Hct 43.6 % (36-47) 04/09/23 18:48 MCV 94.6 fl (85-98) 04/09/23 18:48 MCH 30.2 pg (27-33) 04/09/23 18:48 MCHC 31.9 g/dL (30-55) 04/09/23 18:48 RDW 12.9 % (12.1-15.1) 04/09/23 18:48 Plt Count 491 10^3/cmm (157-399) H 04/09/23 18:48 MPV 9.7 fL (7.4-10.4) 04/09/23 18:48 Neut % (Auto) 52.3 % 04/09/23 18:48 Lymph % (Auto) 34.9 % 04/09/23 18:48 [place] % (Auto) 7.0 % 04/09/23 18:48 Eos % (Auto) 4.5 % 04/09/23 18:48 Baso % (Auto) 1.1 % 04/09/23 18:48 Neut # (Auto) 5.42 10^3/uL (1.8-7.7) 04/09/23 18:48 Lymph # (Auto) 3.6 10^3/uL (0.8-4.8) 04/09/23 18:48 [place] # (Auto) 0.7 10^3/uL (0.2-0.9) 04/09/23 18:48 Eos # (Auto) 0.5 10^3/uL (0.0-0.8) 04/09/23 18:48 Baso # (Auto) 0.1 10^3/uL (0.0-0.1) 04/09/23 18:48 Nucleated RBC % (auto) 0 % 04/09/23 18:48 Nucleated RBCs # 0.0 /100WBC 04/09/23 18:48 PT 12.90 SECONDS (12.1-14.9) 04/09/23 18:48 INR 0.95 (0.8-1.2) 04/09/23 18:48 APTT 30.9 SECONDS (23.9-36.7) 04/09/23 18:48 Sodium 142 mmol/L (136-145) 04/09/23 18:48 Potassium 4.1 mmol/L (3.5-5.1) 04/09/23 18:48 Chloride 105 mmol/L (98-107) 04/09/23 18:48 Carbon Dioxide 25 mmol/L (22-29) 04/09/23 18:48 Anion Gap 16.1 (5-19) 04/09/23 18:48 BUN 15 mg/dL (6-20) 04/09/23 18:48 Creatinine 1.0 mg/dL (0.5-0.9) H 04/09/23 18:48 GFR Calculation 57.1 mL/min (90-130) L 04/09/23 18:48 Glucose 130 mg/dL (65-115) H 04/09/23 18:48 Calculated Osmolality 297 mOsm/kg (285-295) H 04/09/23 18:48 Calcium 9.6 mg/dL (8.5-10.5) 04/09/23 18:48 Total Bilirubin 0.2 mg/dL (0.15-1.2) 04/09/23 18:48 AST 13 U/L (0-32) 04/09/23 18:48 ALT 17 U/L (0-33) 04/09/23 18:48 Alkaline Phosphatase 135 U/L (35-105) H 04/09/23 18:48 Troponin T Baseline 8 ng/L (0-10) 04/09/23 18:48 Troponin T 120 Minute 6.75 ng/L (0-10) 04/09/23 20:17 Delta Troponin T -1.25 ABS# (0-10) L 04/09/23 20:17 NT-Pro-B Natriuret Pep < 36 pg/mL (0-125) 04/09/23 18:48 Total Protein 6.4 g/dL (6.6-8.7) L 04/09/23 18:48 Albumin 4.2 g/dL (3.5-5.2) 04/09/23 18:48 Globulin 2.2 g/dL (1.3-4.6) 04/09/23 18:48 Urine Color Yellow (Yellow) 04/09/23 19:30 Urine Appearance Clear (CLEAR) 04/09/23 19:30 Urine pH 5 (5-7) 04/09/23 19:30 Ur Specific [place] 1.025 (1.005-1.030) 04/09/23 19:30 Urine Protein Neg (Negative) 04/09/23 19:30 Urine Glucose (UA) Norm (Normal) 04/09/23 19:30 Urine Ketones Negative (Negative) 04/09/23 19:30 Urine Blood Neg (Negative) 04/09/23 19:30 Urine Nitrate Negative (Negative) 04/09/23 19:30 Urine Bilirubin Neg (Negative) 04/09/23 19:30 Urine Urobilinogen 1 mg/dL (Negative) H 04/09/23 19:30 Ur Leukocyte Esterase Negative (Negative) 04/09/23 19:30 All radiology interpretation(s) finalized by discharge EKG Data EKG 1: Interpretation: Twelve-lead EKG obtained at 1827 and reviewed at 1827 demonstrates normal sinus rhythm with a ventricular rate of 87 bpm, AR interval 168, QRS duration 83, QT 347 QTc [address] elevation or depression to demonstrate acute ischemia or infarction at present. EKG 2: Interpretation: Repeat twelve-lead EKG obtained at 2021 and reviewed at 2024 demonstrates normal sinus rhythm with a ventricular rate of 70 bpm, AR interval 185 QRS duration 83 QT 385 QTc [address] elevation or depression at present to demonstrate acute ischemia or infarction. Discharge Plan Discharge Patient Disposition: Home Clinical Impression: Atypical chest pain Condition: Stable Prescriptions: No Action pantoprazole 40 mg tablet,delayed release (DR/EC) 40 mg PO DAILY Qty: 30 11RF albuterol sulfate 90 mcg/actuation HFA aerosol inhaler 2 puff inhalation Q6H PRN (Reason: Shortness Of Breath) Myrbetriq 50 mg tablet extended release 24 hr 50 mg PO DAILY PRN (Reason: rx last filled in 2018-pt states takes prn) metoprolol succinate 25 mg tablet extended release 24 hr 25 mg PO DAILY Trelegy Ellipta 100-62.5-25 mcg blister with device 1 inh inhalation Q24H Qty: 60 0RF ondansetron HCl 4 mg tablet 4 mg PO TID PRN (Reason: Nausea And Vomiting) albuterol sulfate 2.5 mg /3 mL (0.083 %) Solution For Nebulization 2.5 mg INHALATION QID PRN (Reason: Shortness Of Breath) Aspir-81 81 mg Tablet,Delayed Release (Dr/Ec) 81 mg PO .2-3 TIMES A WEEK meloxicam 15 mg tablet 15 mg PO DAILY PRN (Reason: rx last filled 06/16/20 30d/s pt states takes prn) lisinopril 5 mg tablet 5 mg PO DAILY Qty: 14 0RF tramadol 50 mg tablet 50 mg PO Q8H PRN (Reason: pain) Qty: 14 0RF cyclobenzaprine 5 mg tablet 5 mg PO BID PRN (Reason: muscle spasm) Qty: 14 0RF Discharge Orders: Discharge ED (Routine); Ordered 04/09/23 Ordered By: Kaiden Diaz Discharge Diet: Advance as tolerated Discharge Activity: Resume usual activity Patient Instructions: Opioid Safety, Pain Management Activity Restrictions/Additional Instructions: Activity Restrictions/Additional Instructions: Thank you for choosing [facility] for your healthcare needs today. Please realize that you were seen in the Emergency Department and that we are providing you with an emergency medical screening exam and this may not be a complete and all inclusive of all the testing and or medical work-up that you may need to determine your ailment or severity of your illness. It is very important that you follow-up as instructed with your Primary care provider or Specialist for additional evaluation and to discuss your medical treatment plan. You may return to the Emergency Department should you have concerns or if your condition changes or worsens in any way. Coding Level of Care Code ED Solidworks Mechanical Designer for Bryson Moseley
[2023-04-09 19:35] VITALS: BP 117/74; PULSE 79; O2SAT 94
[2023-04-09 19:39] LABS: Alanine Aminotransferase 17 U/L (0-33); Albumin Level 4.2 g/dL (3.5-5.2); Alkaline Phosphatase 135 U/L (35-105); Anion Gap 16.1 (5-19); Aspartate Amino Transferase 13 U/L (0-32); Blood Urea Nitrogen 15 mg/dL (6-20); Calcium 9.6 mg/dL (8.5-10.5); Carbon Dioxide 25 mmol/L (22-29); Chloride 105 mmol/L (98-107); Creatinine Clr Calc Pharmacy 56.5478; Globulin 2.2 g/dL (1.3-4.6); Glomerular Filtration Rate 57.1 mL/min (90-130); Glucose 130 mg/dL (65-115); NT Pro B Type Natriuretic Pept < 36 pg/mL (0-125); Osmolality Calculated 297 mOsm/kg (285-295); Potassium 4.1 mmol/L (3.5-5.1); Sodium 142 mmol/L (136-145); Total Bilirubin 0.2 mg/dL (0.15-1.2); Total Protein 6.4 g/dL (6.6-8.7)
[2023-04-09 19:53] LABS: Add Urine Microscopic? NO; Charge for UA Resulting for Rev
--- NOTE | 2023-04-09 20:22 | ECG_ITS ---
[facility] Test Date: 2023-04-09 Pat Name: Beth Trinh Department: Room: Gender: Female Gopherman: : 1965 Requested By: Kaiden Diaz Order Number: [id number] Simone MD: Kellie Varela M.D. Measurements Intervals [place] Rate: 70 P: 63 ID: [id number] QRS: 26 QRSD: 83 T: 38 QT: 385 QTc: 417 Interpretive Statements SINUS RHYTHM Compared to ECG 03/26/2021 10:52:06 Left ventricular hypertrophy no longer present ST (T wave) deviation no longer present Electronically Signed On 04-10-2023 19:47:21 TENTMAKER by Kellie Varela M.D. [id number]
[2023-04-09 20:30] VITALS: BP 117/64; PULSE 77; RESP 20; O2SAT 93
[2023-04-09] MEDS: ketorolac 30 mg/mL INJ IVP (20:45)
[2023-04-09 20:48] LABS: Bilirubin Urine Neg (Negative); Blood Urine Neg (Negative); Glucose Urine UA Norm (Normal); Ketones Urine Negative (Negative); Leukocyte Esterase Urine Negative (Negative); Nitrate Urine Negative (Negative); Protein Urine Neg (Negative); Specific Gravity, Urine 1.025 (1.005-1.030); Urine Appearance Clear (CLEAR); Urine Color Yellow (Yellow); Urobilinogen Urine 1 mg/dL (Negative); pH Urine 5 (5-7)
[2023-04-09 21:17] LABS: Troponin 5 2HR 6.75 ng/L (0-10)
[2023-04-09] MEDS: lidocaine 2% viscous 15 ML, aluminum-mag hydrox-simethicon 30 ML, sucralfate oral liq 1 GM PO (21:28)
[2023-04-09 21:29] LABS: Troponin 5 2HR Delta -1.25 ABS# (0-10)
[2023-04-09 22:06] VITALS: BP 110/67; PULSE 74; RESP 17; O2SAT 95
== END 2023-04-09 22:09 | disposition home or self-care (01) ==
PROVIDERS: Emergency Provider Internal Medicine
DX: R07.89 Other chest pain (principal); Z79.82 Long term (current) use of aspirin; F17.210 Nicotine dependence, cigarettes, uncomplicated
CPT/HCPCS: 71045; 80053; 81003; 83880; 84484; 85025; 85610; 85730; 93005; 96374; 99285; J1885

== ENCOUNTER → 2024-02-01 14:51 | Outpatient (BNVA) | payer MEDICARE, MEDICAID, SELFPAY | PROVIDERS: PCP Family Medicine; Visit Provider Family Medicine | DX: J18.9 Pneumonia, unspecified organism (principal); R07.9 Chest pain, unspecified; R06.00 Dyspnea, unspecified; Z98.890 Other specified postprocedural states; J84.10 Pulmonary fibrosis, unspecified | CPT/HCPCS: 71046; 93005 ==

== ENCOUNTER 2024-02-02 17:40 | Emergency (ER) | payer MEDICARE, MEDICAID, SELFPAY ==
[2024-02-02 18:02] VITALS: BP 117/78; PULSE 100; RESP 21; TEMP 36.8; O2SAT 97; BMI 28.3
--- NOTE | 2024-02-02 18:04 | ECG_ITS ---
[facility] Test Date: 2024-02-02 Pat Name: Beth Trinh Department: Room: Gender: Female Tea Bag Machine Tender: : 1965 Requested By: Kd Aggarwal Order Number: [id number] Simone MD: Kellie Varela M.D. Measurements Intervals [place] Rate: 101 P: 74 [place]: 143 QRS: 71 QRSD: 74 T: 71 QT: 342 QTc: 444 Interpretive Statements SINUS TACHYCARDIA ABNORMAL RHYTHM ECG Compared to ECG 04/09/2023 20:22:17 Sinus rhythm no longer present Electronically Signed On 02-03-2024 22:39:17 CDT by Kellie Varela M.D. [id number] f
== END 2024-02-02 19:57 | disposition left against medical advice (07) ==
PROVIDERS: Emergency Provider Family Medicine; PCP Family Medicine
DX: Z53.21 Procedure and treatment not carried out due to patient leaving prior to being seen by health care provider (principal)
CPT/HCPCS: 93005

== ENCOUNTER 2024-02-03 06:04 | Emergency (ER) | payer MEDICARE, MEDICAID, SELFPAY ==
[2024-02-03] VITALS (7 sets, daily range): BP systolic 151; BP diastolic 88–102; PULSE 76–88; RESP 16–24; TEMP 36.6; O2SAT 96–99; BMI 28.3
--- NOTE | 2024-02-03 06:20 | XR_ITS ---
WS: [id number] XR chest 1V portable [id number] REASON FOR EXAM: dyspnea/cough FINDINGS: The chest is unchanged compared to 02/01/2024. Previous sternotomy. Mild tortuosity of the thoracic aorta. Normal heart size. Calcified granulomas disease bilaterally. No focal lung lesion. No acute pulmonary parenchymal or pleural abnormality. Minimal degenerative spondylosis of the thoracic spine. Probable significant tear of the left rotator cuff tendon with significant osteoarthritis of the left glenohumeral joint. XR/XR chest 1V portable [id number] IMPRESSION: Stable chest without acute abnormality.
--- NOTE | 2024-02-03 06:20 | ECG_ITS ---
[facility] Date: 2024-02-03 Pat Name: Beth Trinh Department: Room: Gender: Female Respiratory Practitioner: : 1965 Requested By: Kd Aggarwal Order Number: [id number] Simone MD: Arun Canchola M.D. Measurements Intervals [place] Rate: 74 P: 79 [place]: 179 QRS: 55 QRSD: 90 T: 59 QT: 375 QTc: 418 Interpretive Statements SINUS RHYTHM POSSIBLE RIGHT ATRIAL ENLARGEMENT [0.25mV P-WAVE] POSSIBLE LEFT ATRIAL ENLARGEMENT [-0.1mV P-WAVE IN V1/V2] POSSIBLE LEFT VENTRICULAR HYPERTROPHY [VOLTAGE CRITERIA PLUS LAE OR QRS WIDENING] Compared to ECG 04/09/2023 20:22:17 No significant changes Electronically Signed On 02-03-2024 07:39:58 CDT by Arun Canchola M.D. [id number]
--- NOTE | 2024-02-03 06:30 | ED_ITS ---
HPI - SOB/Dyspnea 2 General: Chief Complaint: Shortness of Breath/Dyspnea Stated Complaint: coughing,(kimberlyn sent) Time Seen by Provider: 02/03/24 06:19 History of Present Illness: HPI Narrative: 58-year-old female presents to the emerg ency room complaining of shortness of breath for the last several days. She has a history of COPD she also has some underlying coronary artery disease. She was started on Cefdinir levofloxacin and doxycycline at her last visit. She was also put on prednisone taper. She continues to have shortness of breath she normally is not on oxygen she is on 2 L by oxygen at the time that I seen the patient. She is mildly tachypneic. Patient also having some mild chest discomfort. Denies purulent sputum. Associated symptoms: Reports chest congestion; Deny abdominal pain, chest pain or fever(s) Related Data Home Medications Medication Instructions Recorded Confirmed albuterol sulfate 2.5 mg/3 mL 2.5 mg inhalation QID PRN 03/26/21 02/03/24 (0.083 %) solution for nebulization Shortness Of Breath ondansetron HCl 4 mg tablet 4 mg PO TID PRN Nausea And Vomiting 03/26/21 02/03/24 Previous Rx's Medication Instructions Recorded albuterol sulfate 90 mcg/actuation 2 puff inhalation Q6H PRN 01/19/24 aerosol inhaler Shortness Of Breath #8.5 grams budesonide 160 mcg-glycopyr 9 2 inh inhalation BID #10.7 grams 01/19/24 mcg-formot 4.8 mcg/actuation HFA inhaler (Breztri Aerosphere) famotidine 20 mg tablet (Pepcid AC) 20 mg PO BID #60 tabs 01/19/24 metoprolol succinate 25 mg 25 mg PO DAILY #90 tabs 01/19/24 tablet,extended release 24 hr ofloxacin 0.3 % eye drops See Rx Instructions ophthalmic 01/19/24 (eye) .COMPLEX #10 mL pantoprazole 40 mg tablet,delayed 40 mg PO DAILY #30 tabs 01/19/24 release cefdinir 300 mg capsule 300 mg PO BID #20 caps 02/01/24 doxycycline hyclate 100 mg tablet 100 mg PO BID 10 days #20 tabs 02/01/24 levofloxacin 500 mg tablet 500 mg PO DAILY #10 tabs 02/01/24 prednisone 20 mg tablet See Rx Instructions .Route 02/01/24 .COMPLEX #20 tabs Allergies Allergy/AdvReac Type Severity Reaction Status Date / Time codeine Allergy Mild rash Verified 02/01/24 14:03 Review of Systems 2 Const: Denies: fever(s) or chills Card: Denies: chest pain Resp: Reports: dyspnea, wheezing and chest congestion GI: Denies: abdominal pain : Denies: dysuria, urinary frequency or urinary urgency Musc: Denies: neck pain or back pain Skin/Breast: Denies: rash PFSH ED 2 PFSH: Medical History Anxiety Social History Smoking and tobacco/nicotine status: never used tobacco/nicotine Alcohol intake: current Alcohol intake frequency: holidays/special occasions only Physical Exam 2 Const: COMMON NORMALS: no acute distress GENERAL APPEARANCE: cooperative and comfortable ORIENTATION/CONSCIOUSNESS: Yes awake, Yes oriented to person, Yes oriented to place and Yes oriented to time HENMT: COMMON NORMALS: normocephalic, atraumatic and hearing grossly normal bilaterally HEAD & SCALP: normocephalic and atraumatic Resp: EFFORT & INSPECTION: Yes tachypneic and Yes uses accessory muscles A USCULTATION: rhonchi and wheezes Cardio: COMMON NORMALS: regular rate, regular rhythm and No murmurs present (Cardio) RATE: regular rate RHYTHM: regular rhythm GI: COMMON NORMALS: Soft to palpation and No hepatosplenomegaly present A USCULTATION: Yes normoactive bowel sounds PALPATION: Yes Soft to palpation, No Tenderness to palpation present (GI), No Guarding due to palpation present (GI) and Yes No hepatosplenomegaly present Extremity: COMMON NORMALS: normal to inspection, capillary refill normal, no clubbing, cyanosis or edema, no calf tenderness and no pedal edema Neuro: SENSORIUM/ORIENTATION: Yes oriented to person, Yes oriented to place and Yes oriented to time Skin: COMMON NORMALS: no rashes or lesions noted GENERAL SKIN EXAM: no rashes or lesions noted Course 2 Vital Signs: Vital signs: Vital Signs Temperature 97.9 F 02/03/24 06:14 Pulse Rate 76 02/03/24 08:30 Respiratory Rate 16 02/03/24 07:34 Blood Pressure 151/102 02/03/24 06:58 Pulse Oximetry 96 02/03/24 08:30 Oxygen Delivery Me thod Room Air 02/03/24 07:34 MDM - SOB/Dyspnea Medical Decision Making Chest x-ray did not show anything acute there are some granulomas which are chronic no acute infiltrates. No send widening mediastinum no pneumothorax no pneumonia. Her pO2 is normal her sats remain normal on room air. She is not having any CO2 retention. She currently is on steroids and which accounts for elevated white count. She is also on 3 different antibiotics prescribed by her primary care doctor. Reviewed findings with the patient will discharge her home. We had gotten cardiac enzymes but she did not get the second 1 because she wished to go she was discharged home at her request she can return anytime if she wishes. I would recommend that she continue the steroids and antibiotics that she was prescribed previously along with beta agonist use liberally. Medical Records I reviewed the patient's medical records. Lab Data I reviewed the patient's lab results. 02/03/24 06:32 02/03/24 06:32 Labs/Radiology: Radiology Impressions Chest X-Ray 02/03/24 06:20 IMPRESSION: Stable chest without acute abnormality. Laboratory Results WBC 17.17 10^3/uL (3.29-11.43) H 02/03/24 06:32 RBC 4.60 10^6/uL (3.85-5.65) 02/03/24 06:32 Hgb 14.00 g/dL (11.27-16.99) 02/03/24 06:32 Hct 44.4 % (36-47) 02/03/24 06:32 MCV 96.5 fl (85-98) 02/03/24 06:32 MCH 30.4 pg (27-33) 02/03/24 06:32 MCHC 31.5 g/dL (30-55) 02/03/24 06:32 RDW 13.7 % (12.1-15.1) 02/03/24 06:32 Plt Count 449 10^3/cmm (157-399) H 02/03/24 06:32 MPV 10.1 fL (7.4-10.4) 02/03/24 06:32 Neut % (Auto) 71.1 % 02/03/24 06:32 Lymph % (Auto) 19.4 % 02/03/24 06:32 [place] % (Auto) 7.7 % 02/03/24 06:32 Eos % (Auto) 1.1 % 02/03/24 06:32 Baso % (Auto) 0.3 % 02/03/24 06:32 Neut # (Auto) 12.20 10^3/uL (1.8-7.7) H 02/03/24 06:32 Lymph # (Auto) 3.3 10^3/uL (0.8-4.8) 02/03/24 06:32 [place] # (Auto) 1.3 10^3/uL (0.2-0.9) H 02/03/24 06:32 Eos # (Auto) 0.2 10^3/uL (0.0-0.8) 02/03/24 06:32 Baso # (Auto) 0.1 10^3/uL (0.0-0.1) 02/03/24 06:32 Nucleated RBC % (auto) 0 % 02/03/24 06:32 Nucleated RBCs # 0.0 /100WBC 02/03/24 06:32 Specimen Type Arterial 02/03/24 06:20 Sample Site Radial, right 02/03/24 06:20 ABG pH 7.39 (7.35-7.45) 02/03/24 06:20 ABG pCO2 44.7 mmHg (35-45) 02/03/24 06:20 ABG pO2 102.0 mmHg (80.0-100.0) H 02/03/24 06:20 ABG HCO3 26.8 mmol/L (22-26) H 02/03/24 06:20 ABG O2 Saturation 98.7 02/03/24 06:20 ABG Base Excess 1.3 mmol/L (-2.0-2.0) 02/03/24 06:20 Karl Test Pos 02/03/24 06:20 A-a O2 Gradient 0.0 mmHg (5-10) L 02/03/24 06:20 Hematocrit 43.3 % (37-47) 02/03/24 06:20 Hgb O2 Saturation 96.5 % (95-100) 02/03/24 06:20 Carboxyhemoglobin 1.8 %THgb (0.4-20.1) 02/03/24 06:20 Methemoglobin 0.4 % (0.4-1.5) 02/03/24 06:20 Total Hemoglobin 14.1 g/dL (12-16) 02/03/24 06:20 Sodium 142.0 mmol/L (131-143) 02/03/24 06:20 Potassium 3.3 mmol/L (3.5-5.0) L 02/03/24 06:20 Glucose 148.0 mg/dL (70-115) H 02/03/24 06:20 Ionized Calcium 1.2 mmol/L (1.1-1.4) 02/03/24 06:20 O2 Delivery Device Nc 02/03/24 06:20 O2 Liters/Min 2.0 % 02/03/24 06:20 Magento Developer ID [email or web address] 02/03/24 06:20 Sodium 139 mmol/L (136-145) 02/03/24 06:32 Potassium 3.8 mmol/L (3.5-5.1) 02/03/24 06:32 Chloride 104 mmol/L (98-107) 02/03/24 06:32 Carbon Dioxide 24 mmol/L (22-29) 02/03/24 06:32 Anion Gap 14.8 (5-19) 02/03/24 06:32 BUN 16 mg/dL (6-20) 02/03/24 06:32 Creatinine 0.7 mg/dL (0.5-0.9) 02/03/24 06:32 GFR Calculation 85.9 mL/min (90-130) L 02/03/24 06:32 Glucose 162 mg/dL (65-115) H 02/03/24 06:32 Calculated Osmolality 293 mOsm/kg (285-295) 02/03/24 06:32 Lactic Acid 2.1 mmol/L (0.5-2.2) 02/03/24 06:32 Calcium 8.8 mg/dL (8.5-10.5) 02/03/24 06:32 Total Bilirubin 0.2 mg/dL (0.15-1.2) 02/03/24 06:32 AST 14 U/L (0-32) 02/03/24 06:32 ALT 18 U/L (0-33) 02/03/24 06:32 Alkaline Phosphatase 131 U/L (35-105) H 02/03/24 06:32 Troponin T Baseline 10 ng/L (0-10) 02/03/24 06:32 Total Protein 6.2 g/dL (6.6-8.7) L 02/03/24 06:32 Albumin 3.7 g/dL (3.5-5.2) 02/03/24 06:32 Globulin 2.5 g/dL (1.3-4.6) 02/03/24 06:32 All radiology interpretation(s) finalized by discharge Discharge Plan Discharge Patient Disposition: Home Clinical Impression: Acute exacerbation of chronic obstructive airways disease Condition: Stable Prescriptions: No Action ofloxacin 0.3 % drops See Rx Instructions ophthalmic (eye) .COMPLEX Qty: 10 0RF Rx Instructions: put 1-2 drps into each eye every 2-4 h x 2 days, then 1-2 drps 4 times/day days 3-7 Breztri Aerosphere 160-9-4.8 mcg/actuation HFA aerosol inhaler 2 inh inhalation BID Qty: 10.7 5RF albuterol sulfate 90 mcg/actuation HFA aerosol inhaler 2 puff inhalation Q6H PRN (Reason: Shortness Of Breath) Qty: 8.5 2RF metoprolol succinate 25 mg tablet extended release 24 hr 25 mg PO DAILY Qty: 90 3RF pantoprazole 40 mg tablet,delayed release (DR/EC) 40 mg PO DAILY Qty: 30 11RF famotidine [Pepcid AC] 20 mg tablet 20 mg PO BID Qty: 60 5RF prednisone 20 mg tablet See Rx Instructions .Route .COMPLEX Qty: 20 0RF Rx Instructions: 3 tabs x 3 days, then 2 tabs x 3 days, then 1 tab x 3 days, then 1/2 tab x 3 days. levofloxacin 500 mg tablet 500 mg PO DAILY Qty: 10 0RF cefdinir 300 mg capsule 300 mg PO BID Qty: 20 0RF doxycycline hyclate 100 mg tablet 100 mg PO BID 10 Days Qty: 20 0RF ondansetron HCl 4 mg tablet 4 mg PO TID PRN (Reason: Nausea And Vomiting) albuterol sulfate 2.5 mg /3 mL (0.083 %) Solution For Nebulization 2.5 mg INHALATION QID PRN (Reason: Shortness Of Breath) Discharge Orders: Discharge ED (Routine); Ordered 02/03/24 Ordered By: Kd Valenzuela Referrals: Jackson Veronica, [Primary Care Provider] - Discharge Diet: Usual diet Discharge Activity: Increase activity as tolerated Patient Instructions: COPD (Chronic Obstructive Pulmonary Disease) (ED), Opioid Safety, Pain Management Activity Restrictions/Additional Instructions: Thank you for choosing [facility] for your healthcare needs today. It is very important that you follow up as instructed or that you return to the Emergency Department should you have concerns or if your condition changes or worsens in any way. You were seen in the emergency room today for complaints of shortness of breath. Chest x-ray reviewed from 01 31 and done today did not show any acute abnormalities. She did have a moderate amount of wheezing when he arrived which improved after nebulizer treatments her oxygen saturations were stable. Your white count is slightly elevated which is likely due to the steroids you are currently taking. Recommend completing the course of steroids and antibiotics that you were given by Dr. Le and follow-up with his office. We were screening you for any coronary artery issues however since she chose to leave before the second troponin was done that workup was not completed if you change your mind you can return at any time. Coding Level of Care Code ED Collections Specialist for Bryson Moseley
[2024-02-03 06:40] LABS: Basophils # 0.1 10^3/uL (0.0-0.1); Basophils % 0.3 %; Eosinophils # 0.2 10^3/uL (0.0-0.8); Eosinophils % 1.1 %; Hematocrit 44.4 % (36-47); Lymphocytes # 3.3 10^3/uL (0.8-4.8); Lymphocytes % 19.4 %; Mean Corpuscular HGB Conc 31.5 g/dL (30-55); Mean Corpuscular Hemoglobin 30.4 pg (27-33); Mean Corpuscular Volume 96.5 fl (85-98); Mean Platelet Volume 10.1 fL (7.4-10.4); Monocytes # 1.3 10^3/uL (0.2-0.9); Monocytes % 7.7 %; Neutrophils % 71.1 %; Nucleated Red Blood Cells % 0 %; Platelet Count 449 10^3/cmm (157-399); Red Cell Distribution Width 13.7 % (12.1-15.1); White Blood Count 17.17 10^3/uL (3.29-11.43)
[2024-02-03 06:44] LABS: ABG PCO2 44.7 mmHg (35-45); ABG PH Result 7.39 (7.35-7.45); Arterial Blood Gas Hematocrit 43.3 % (37-47); Base Excess ABG 1.3 mmol/L (-2.0-2.0); Blood Gas Allen Test Pos; Blood Gas Sample Site Radial, right; Blood Gas Sample Type Arterial; Carboxyhemoglobin 1.8 %THgb (0.4-20.1); HCO3 ABG 26.8 mmol/L (22-26); HGB O2 Sat 96.5 % (95-100); Ionized Calcium Level - ABG 1.2 mmol/L (1.1-1.4); Methemoglobin 0.4 % (0.4-1.5); Oxygen Device NC; Oxygen Saturation ABG 98.7; Potassium Level - ABG 3.3 mmol/L (3.5-5.0); Total Hemoglobin 14.1 g/dL (12-16)
[2024-02-03 07:00] LABS: Troponin(5th) Baseline 10 ng/L (0-10)
[2024-02-03 07:03] LABS: Anion Gap 14.8 (5-19); Blood Urea Nitrogen 16 mg/dL (6-20); Carbon Dioxide 24 mmol/L (22-29); Chloride 104 mmol/L (98-107); Creatinine Clr Calc Pharmacy 77.3001; Glomerular Filtration Rate 85.9 mL/min (90-130); Lactic Sepsis W/Reflex 2.1 mmol/L (0.5-2.2); Potassium 3.8 mmol/L (3.5-5.1); Sodium 139 mmol/L (136-145)
[2024-02-03 07:04] LABS: Alanine Aminotransferase 18 U/L (0-33); Albumin Level 3.7 g/dL (3.5-5.2); Alkaline Phosphatase 131 U/L (35-105); Aspartate Amino Transferase 14 U/L (0-32); Calcium 8.8 mg/dL (8.5-10.5); Globulin 2.5 g/dL (1.3-4.6); Glucose 162 mg/dL (65-115); Osmolality Calculated 293 mOsm/kg (285-295); Total Bilirubin 0.2 mg/dL (0.15-1.2); Total Protein 6.2 g/dL (6.6-8.7)
[2024-02-03] MEDS: dexamethasone 10 mg/mL INJ IM (07:06)
[2024-02-03] MEDS: ipratropium-albuterol 3 mL Neb INHALATION (07:34)
--- NOTE | 2024-02-03 08:16 | PC.NURSE ---
I went in and asked the patient if she needed to urinate because the physician wanted us to collect a urine sample. The patient informed me that she is not giving a urine sample until she gets her CT scan. I then explained to the patient that the physician had not ordered a CT scan. The patient then stated that she was not going to give us anything else until she got a CT scan. I told her that I would inform the doctor and either I myself or the physician would be back in the room to speak with her.
[2024-02-03 08:24] LABS: Reflex Lactate Order REFLEX LACTIC ORDERD
== END 2024-02-03 08:34 | disposition home or self-care (01) ==
PROVIDERS: Emergency Provider Family Medicine; PCP Family Medicine
DX: J44.1 Chronic obstructive pulmonary disease with (acute) exacerbation (principal); I25.10 Atherosclerotic heart disease of native coronary artery without angina pectoris
CPT/HCPCS: 36415; 71045; 80051; 80053; 82330; 82805; 83605; 84484; 85025; 87040; 93005; 94640; 96372; 99285; J1100

== ENCOUNTER 2024-07-17 12:32 | Emergency (ER) | payer MEDICARE, MEDICAID, SELFPAY ==
--- NOTE | 2024-07-17 12:47 | ECG_ITS ---
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 Measurements Intervals [place] Rate: 65 P: 63 PA: 183 QRS: 40 QRSD: 86 T: 52 QT: 381 QTc: 397 Interpretive Statements SINUS RHYTHM Compared to ECG 02/03/2024 06:34:52 No significant changes Electronically Signed On 07-18-2024 12:34:47 CDT by Kellie Varela M.D. [id number]
[2024-07-17 12:51] VITALS: BP 162/95; PULSE 68; RESP 18; TEMP 36.6; O2SAT 98; BMI 26.4
--- NOTE | 2024-07-17 12:55 | XR_ITS ---
WS: [id number] Exam: XR chest 1V portable [id number] Date/Time of Exam: 07/17/2024 1:00 PM Reason For Exam: sob Comparison 02/03/2024. Lungs are hyperinflated and clear. Normal cardiomediastinal silhouette. Signs of previous median sternotomy. Moderate DJD of the LEFT shoulder. XR/XR chest 1V portable [id number] IMPRESSION: 1. Pulmonary hyperinflation. No acute finding.
--- NOTE | 2024-07-17 12:56 | W.ED.SOB ---
HPI - SOB/Dyspnea General: Chief Complaint: Shortness of Breath/Dyspnea Stated Complaint: sob Time Seen by Provider: 07/17/24 12:51 Source: patient Mode of arrival: ambulatory Limitations: no limitations History of Present Illness: HPI Narrative: 59-year-old female has a history of COPD states she had influenza a month ago states since then she has been having increasing wheezing that is worsened this week states she has been having increasing dry cough and shortness of breath. She does have wheezing here states has been using breathing treatments with minimal relief has not seen anyone or been on steroids recently. Denies any chest pain. Associated symptoms: Deny abdominal pain, chest pain, fever(s), nausea or vomiting Related Data Home Medications ?Medication ?Instructions ?Recorded ?Confirmed acetaminophen 325 mg tablet 650 mg PO QID PRN Fever Or Pain 07/17/24 07/17/24 (Tylenol) biotin 10 mg tablet 10 mg PO DAILY 07/17/24 07/17/24 ibuprofen 200 mg tablet (Advil) 400 mg PO Q6H PRN Fever Or Pain 07/17/24 07/17/24 multivitamin with minerals-folic 1 tab PO DAILY 07/17/24 07/17/24 acid 0.4 mg tablet ondansetron HCl 4 mg tablet 4 mg PO Q12H PRN Nausea And 07/17/24 07/17/24 Vomiting potassium gluconate 600 mg (99 mg) 600 mg PO DAILY 07/17/24 07/17/24 tablet Previous Rx's ?Medication ?Instructions ?Recorded albuterol sulfate 90 mcg/actuation 2 puff inhalation Q6H PRN 01/19/24 aerosol inhaler Shortness Of Breath #8.5 grams budesonide 160 mcg-glycopyr 9 2 inh inhalation BID #10.7 grams 01/19/24 mcg-formot 4.8 mcg/actuation HFA inhaler (Breztri Aerosphere) famotidine 20 mg tablet (Pepcid AC) 20 mg PO BID #60 tabs 01/19/24 metoprolol succinate 25 mg 25 mg PO DAILY #90 tabs 01/19/24 tablet,extended release 24 hr pantoprazole 40 mg tablet,delayed 40 mg PO DAILY #30 tabs 01/19/24 release ipratropium 0.5 mg-albuterol 3 mg 3 ml inhalation .q4 h PRN wheezing 02/13/24 (2.5 mg base)/3 mL nebulization #90 mL soln cephalexin 500 mg capsule 500 mg PO TID 7 days #21 caps 07/17/24 naproxen 500 mg tablet (Naprosyn) 500 mg PO BID PRN pain #20 tabs 07/17/24 prednisone 50 mg tablet 50 mg PO DAILY #5 tabs 07/17/24 Allergies Allergy/AdvReac Type Severity Reaction Status Date / Time codeine Allergy Mild rash Verified 02/21/24 11:05 Review of Systems Const: Denies: fever(s), chills, body aches or change in appetite ENMT: Denies: throat pain or dental pain Card: Denies: chest pain Resp: Reports: dyspnea and wheezing GI: Denies: abdominal pain, nausea, vomiting or diarrhea Musc: Denies: neck pain or back pain Skin/Breast: Denies: rash Neuro: Denies: headache(s) PFSH ED PFSH: Medical History Anxiety Social History Smoking and tobacco/nicotine status: never used tobacco/nicotine Alcohol intake: current Alcohol intake frequency: holidays/special occasions only Physical Exam Const: COMMON NORMALS: patient oriented x3 HENMT: COMMON NORMALS: normocephalic and atraumatic HEAD & SCALP: normocephalic and atraumatic Eye: COMMON NORMALS: Equal, round and reactive pupils present PUPIL: Yes Equal, round and reactive pupils present Neck/C-Spine: COMMON NORMALS: full ROM and supple Chest: COMMONS NORMALS: normal inspection of the chest Resp: COMMON NORMALS: normal respiratory effort, No retractions and No use of accessory muscles AUSCULTATION: wheezes Cardio: COMMON NORMALS: regular rate, regular rhythm and No murmurs present (Cardio) RATE: regular rate RHYTHM: regular rhythm GI: COMMON NORMALS: Normal to inspection, nondistended, normoactive bowel sounds present, Soft to palpation, non-tender and no masses PALPATION: Yes Soft to palpation Extremity: COMMON NORMALS: normal to inspection and full ROM Neuro: COMMON NORMALS: patient oriented x3, moves all extremities and no focal motor deficits Psych: COMMON NORMALS: mental status grossly normal, Normal thought process present and cooperative THOUGHT PROCESS: Normal thought process present Skin: COMMON NORMALS: no rashes or lesions noted and no wounds GENERAL SKIN EXAM: no rashes or lesions noted Course Vital Signs: Vital signs: Vital Signs Temperature 97.8 F 07/17/24 12:51 Pulse Rate 83 07/17/24 14:40 Respiratory Rate 18 07/17/24 14:21 Blood Pressure 162/95 07/17/24 12:51 Pulse Oximetry 99 07/17/24 14:21 Oxygen Delivery Me thod Room Air 07/17/24 14:21 MDM - SOB/Dyspnea Medical Decision Making Patient presents here with COPD exacerbation she feels much improved at this time breathing has improved as well x-ray shows no pneumonia blood work here is normal she did have some chest pain here is likely pleuritic or muscular her D-dimer and troponin is normal no signs of ACS we will place her on Naprosyn along with antibiotic and 5-day steroid she is to follow-up with PCP and return if worsening. Medical Records I reviewed the patient's medical records. Lab Data I reviewed the patient's lab results. 07/17/24 13:04 07/17/24 13:04 Labs/Radiology: Radiology Impressions Chest X-Ray 07/17/24 12:55 IMPRESSION: 1. Pulmonary hyperinflation. No acute finding. Laboratory Results WBC 8.22 10^3/uL (3.29-11.43) 07/17/24 13:04 RBC 4.83 10^6/uL (3.85-5.65) 07/17/24 13:04 Hgb 14.50 g/dL (11.27-16.99) 07/17/24 13:04 Hct 46.2 % (36-47) 07/17/24 13:04 MCV 95.7 fl (85-98) 07/17/24 13:04 MCH 30.0 pg (27-33) 07/17/24 13:04 MCHC 31.4 g/dL (30-55) 07/17/24 13:04 RDW 14.5 % (12.1-15.1) 07/17/24 13:04 Plt Count 402 10^3/cmm (157-399) H 07/17/24 13:04 MPV 10.0 fL (7.4-10.4) 07/17/24 13:04 Neut % (Auto) 52.5 % 07/17/24 13:04 Lymph % (Auto) 33.8 % 07/17/24 13:04 [place] % (Auto) 7.4 % 07/17/24 13:04 Eos % (Auto) 5.2 % 07/17/24 13:04 Baso % (Auto) 0.9 % 07/17/24 13:04 Neut # (Auto) 4.31 10^3/uL (1.8-7.7) 07/17/24 13:04 Lymph # (Auto) 2.8 10^3/uL (0.8-4.8) 07/17/24 13:04 [place] # (Auto) 0.6 10^3/uL (0.2-0.9) 07/17/24 13:04 Eos # (Auto) 0.4 10^3/uL (0.0-0.8) 07/17/24 13:04 Baso # (Auto) 0.1 10^3/uL (0.0-0.1) 07/17/24 13:04 Nucleated RBC % (auto) 0 % 07/17/24 13:04 Nucleated RBCs # 0.0 /100WBC 07/17/24 13:04 D-Dimer 0.29 ug/mLFEU (0-0.59) 07/17/24 13:04 Sodium 140 mmol/L (136-145) 07/17/24 13:04 Potassium 4.2 mmol/L (3.5-5.1) 07/17/24 13:04 Chloride 104 mmol/L (98-107) 07/17/24 13:04 Carbon Dioxide 29 mmol/L (22-29) 07/17/24 13:04 Anion Gap 11.2 (5-19) 07/17/24 13:04 BUN 10 mg/dL (6-20) 07/17/24 13:04 Creatinine 0.8 mg/dL (0.5-0.9) 07/17/24 13:04 GFR Calculation 73.4 mL/min (90-130) L 07/17/24 13:04 Glucose 104 mg/dL (65-115) 07/17/24 13:04 Calculated Osmolality 289 mOsm/kg (285-295) 07/17/24 13:04 Calcium 9.2 mg/dL (8.5-10.5) 07/17/24 13:04 Total Bilirubin 0.4 mg/dL (0.15-1.2) 07/17/24 13:04 AST 12 U/L (0-32) 07/17/24 13:04 ALT 9 U/L (0-33) 07/17/24 13:04 Alkaline Phosphatase 104 U/L (35-105) 07/17/24 13:04 Troponin T Baseline < 6 ng/L (0-10) 07/17/24 13:04 Troponin T 120 Minute 6.00 ng/L (0-10) 07/17/24 14:50 Delta Troponin T 0.80788 ABS# (0-10) 07/17/24 14:50 NT-Pro-B Natriuret Pep 152 pg/mL (0-125) H 07/17/24 13:04 Total Protein 6.7 g/dL (6.6-8.7) 07/17/24 13:04 Albumin 4.1 g/dL (3.5-5.2) 07/17/24 13:04 Globulin 2.6 g/dL (1.3-4.6) 07/17/24 13:04 All radiology interpretation(s) finalized by discharge EKG Data EKG 1: I personally reviewed and interpreted this EKG as follows: EKG Interpretation Date: 07/17/24 EKG interpretation time: 12:47 Interpretation: nsr hr [address] elevation qrs 86 qtc 392 Discharge Plan Discharge Patient Disposition: Home Clinical Impression: COPD exacerbation, Atypical chest pain Condition: Stable Prescriptions: New cephalexin 500 mg capsule 500 mg PO TID 7 Days Qty: 21 0RF prednisone 50 mg tablet 50 mg PO DAILY Qty: 5 0RF naproxen [Naprosyn] 500 mg tablet 500 mg PO BID PRN (Reason: pain) Qty: 20 0RF No Action Breztri Aerosphere 160-9-4.8 mcg/actuation HFA aerosol inhaler 2 inh inhalation BID Qty: 10.7 5RF albuterol sulfate 90 mcg/actuation HFA aerosol inhaler 2 puff inhalation Q6H PRN (Reason: Shortness Of Breath) Qty: 8.5 2RF metoprolol succinate 25 mg tablet extended release 24 hr 25 mg PO DAILY Qty: 90 3RF pantoprazole 40 mg tablet,delayed release (DR/EC) 40 mg PO DAILY Qty: 30 11RF famotidine [Pepcid AC] 20 mg tablet 20 mg PO BID Qty: 60 5RF ipratropium-albuterol 0.5 mg-3 mg(2.5 mg base)/3 mL solution for nebulization 3 ml inhalation .q4 h PRN (Reason: wheezing) Qty: 90 1RF ondansetron HCl 4 mg tablet 4 mg PO Q12H PRN (Reason: Nausea And Vomiting) biotin 10 mg Tablet 10 mg PO DAILY acetaminophen [Tylenol] 325 mg Tablet 650 mg PO QID PRN (Reason: Fever Or Pain) ibuprofen [Advil] 200 mg Tablet 400 mg PO Q6H PRN (Reason: Fever Or Pain) multivit with min-folic acid [Daily Multiple For Women 50+] 0.4 mg Tablet 1 tab PO DAILY potassium gluconate 600 mg (99 mg) Tablet 600 mg PO DAILY Discharge Orders: Discharge ED (Routine); Ordered 07/17/24 Ordered By: Edvin Hatfield Discharge Diet: Advance as tolerated Discharge Activity: Resume usual activity Patient Instructions: COPD (Chronic Obstructive Pulmonary Disease) (ED) Print Language: Irish Coding Level of Care Code ED Loader Technician for Bryson Moseley
[2024-07-17 13:13] VITALS: RESP 22
[2024-07-17] MEDS: morphine 4 mg/mL SDV 1 mL IVP (13:13)
[2024-07-17] MEDS: methylPREDNISolone sod succ 125 mg/2 mL INJ IV (13:13)
[2024-07-17] MEDS: ondansetron 2 mg/ML SDV 2 mL 4 MG IVP (13:13)
[2024-07-17 13:14] LABS: Basophils # 0.1 10^3/uL (0.0-0.1); Basophils % 0.9 %; Eosinophils # 0.4 10^3/uL (0.0-0.8); Eosinophils % 5.2 %; Hematocrit 46.2 % (36-47); Lymphocytes # 2.8 10^3/uL (0.8-4.8); Lymphocytes % 33.8 %; Mean Corpuscular HGB Conc 31.4 g/dL (30-55); Mean Corpuscular Volume 95.7 fl (85-98); Monocytes # 0.6 10^3/uL (0.2-0.9); Monocytes % 7.4 %; Neutrophils # 4.31 10^3/uL (1.8-7.7); Neutrophils % 52.5 %; Nucleated Red Blood Cells % 0 %; Platelet Count 402 10^3/cmm (157-399); Red Blood Count 4.83 10^6/uL (3.85-5.65); Red Cell Distribution Width 14.5 % (12.1-15.1); White Blood Count 8.22 10^3/uL (3.29-11.43)
[2024-07-17 13:21] VITALS: PULSE 65; RESP 18; O2SAT 99
[2024-07-17] MEDS: albuterol 2.5 mg/3 mL Neb INHALATION (13:23)
[2024-07-17] MEDS: ipratropium-albuterol 3 mL Neb INHALATION (13:23)
[2024-07-17 13:38] VITALS: PULSE 69
[2024-07-17 13:38] LABS: Alanine Aminotransferase 9 U/L (0-33); Albumin Level 4.1 g/dL (3.5-5.2); Alkaline Phosphatase 104 U/L (35-105); Anion Gap 11.2 (5-19); Aspartate Amino Transferase 12 U/L (0-32); Blood Urea Nitrogen 10 mg/dL (6-20); Calcium 9.2 mg/dL (8.5-10.5); Carbon Dioxide 29 mmol/L (22-29); Chloride 104 mmol/L (98-107); Creatinine Clr Calc Pharmacy 64.6439; Globulin 2.6 g/dL (1.3-4.6); Glomerular Filtration Rate 73.4 mL/min (90-130); Glucose 104 mg/dL (65-115); NT Pro B Type Natriuretic Pept 152 pg/mL (0-125); Osmolality Calculated 289 mOsm/kg (285-295); Potassium 4.2 mmol/L (3.5-5.1); Sodium 140 mmol/L (136-145); Total Bilirubin 0.4 mg/dL (0.15-1.2); Total Protein 6.7 g/dL (6.6-8.7)
--- NOTE | 2024-07-17 13:47 | ECG_ITS ---
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 Measurements Intervals [place] Rate: 66 P: 71 GA: 179 QRS: 37 QRSD: 80 T: 56 QT: 386 QTc: 407 Interpretive Statements SINUS RHYTHM Compared to ECG 07/17/2024 12:47:54 No significant changes Electronically Signed On 07-18-2024 12:34:43 CDT by Kellie Varela M.D. [id number]
[2024-07-17] MEDS: ketorolac 30 mg/mL INJ 15 MG IVP (14:18)
[2024-07-17] MEDS: aspirin 81 mg Chew Tablet 324 MG PO (14:18)
[2024-07-17] MEDS: albuterol 2.5 mg/3 mL Neb 5 MG INHALATION (14:20)
[2024-07-17 14:21] VITALS: PULSE 75; RESP 18; O2SAT 99
[2024-07-17 14:22] LABS: D Dimer 0.29 ug/mLFEU (0-0.59)
[2024-07-17 14:29] LABS: Troponin(5th) Baseline < 6 ng/L (0-10)
[2024-07-17 14:40] VITALS: PULSE 83
[2024-07-17 15:20] LABS: Troponin 5 2HR Delta 0.00001 ABS# (0-10)
--- NOTE | 2024-07-17 15:51 | ECG_ITS ---
[facility] Test Date: 2024-07-17 Pat Name: Beth Trinh Department: Room: Gender: Female Truck Driver: : 1965 Requested By: Edvin Hatfield Order Number: [id number] Simone MD: Kellie Varela M.D. Measurements Intervals [place] Rate: 81 P: 63 RI: 175 QRS: 28 QRSD: 89 T: 42 QT: 374 QTc: 436 Interpretive Statements SINUS RHYTHM MINIMAL VOLTAGE CRITERIA FOR LVH, CONSIDER NORMAL VARIANT [MEETS CRITERIA IN ONE OF: R(aVL), S(V1), R(V5), R(V5/V6)+S(V1)] Compared to ECG 07/17/2024 13:47:13 No significant changes Electronically Signed On 07-19-2024 22:28:00 CDT by Kellie Varela M.D. [id number]
== END 2024-07-17 16:07 | disposition home or self-care (01) ==
PROVIDERS: Emergency Provider Emergency Medicine
DX: J44.1 Chronic obstructive pulmonary disease with (acute) exacerbation (principal); R07.89 Other chest pain
CPT/HCPCS: 36415; 71045; 80053; 83880; 84484; 85025; 85378; 93005; 94640; 96374; 96375; 99285; J1885; J2270; J2405; J2919; J7613; J9999

== ENCOUNTER 2024-12-12 15:17 | Outpatient (CLI) | payer MEDICARE, MEDICAID, SELFPAY ==
--- NOTE | 2024-12-12 15:20 | MM_ITS ---
WS: [id number] BILATERAL 3D TOMOSYNTHESIS DIGITAL SCREENING MAMMOGRAPHY WITH CAD CLINICAL INFORMATION: SCREENING HISTORY: Screening mammogram. No current complaints. COMPARISON: 2022 TECHNIQUE: Bilateral CC and MLO views. FINDINGS: Scattered fibroglandular densities bilaterally. Vascular calcification. [place] centered calcification RIGHT breast. New 5 mm ovoid nodule in the LEFT axillary tail may present on the LEFT of indeterminate. Recommend ultrasound. Unremarkable RIGHT breast. MM/MM scr BI tomosynthesis [id number] IMPRESSION: DENSITY: There are scattered areas of fibroglandular density. BI-RADS: 0 - Incomplete: Need additional imaging evaluation. FOLLOW UP: Need Additional Imaging Recommend LEFT breast ultrasound
== END 2024-12-12 15:18 | disposition home or self-care (01) ==
LOC: MOBLMAM 15:18
PROVIDERS: PCP Nurse Practitioner Family; Visit Provider Nurse Practitioner Family
DX: Z12.31 Encounter for screening mammogram for malignant neoplasm of breast (principal); R92.323 Mammographic fibroglandular density, bilateral breasts; R92.1 Mammographic calcification found on diagnostic imaging of breast; N63.32 Unspecified lump in axillary tail of the left breast
CPT/HCPCS: 77063; 77067

== ENCOUNTER 2024-12-27 10:09 | Outpatient (CLI) | payer MEDICARE, MEDICAID, SELFPAY ==
--- NOTE | 2024-12-27 10:14 | US_ITS ---
WS: [id number] ULTRASOUND BREAST LEFT TECHNIQUE: Ultrasound left breast focused area of concern. CLINICAL INFORMATION: ABNORMAL MAMMOGRAM COMPARISON: 12/12/2024 FINDINGS: Ultrasound axillary tail in the area of concern. 2 normal-appearing lymph nodes are visualized with normal fatty hilum. Lymph nodes measure 1.3 x 1.4 cm and 0.6 x 0.7 cm. No other suspicious findings. US/US breast LT limited* [id number] IMPRESSION: BI-RADS 2 benign Recommend return to annual screening mammography.
== END 2024-12-27 10:10 | disposition home or self-care (01) ==
LOC: RAD 10:10
PROVIDERS: PCP Nurse Practitioner Family; Visit Provider Nurse Practitioner Family
DX: R92.8 Other abnormal and inconclusive findings on diagnostic imaging of breast (principal)
CPT/HCPCS: 76642

== ENCOUNTER → 2025-01-08 13:01 | Outpatient (BNVA) | payer MEDICARE, MEDICAID, SELFPAY | PROVIDERS: PCP Nurse Practitioner Family; Referring Provider Nurse Practitioner Family; Visit Provider Internal Medicine | DX: J44.9 Chronic obstructive pulmonary disease, unspecified (principal); J96.10 Chronic respiratory failure, unspecified whether with hypoxia or hypercapnia; Z99.81 Dependence on supplemental oxygen; F17.210 Nicotine dependence, cigarettes, uncomplicated | CPT/HCPCS: 36415; 85025; 99204 ==

== ENCOUNTER 2025-01-16 13:30 | Emergency (ER) | payer MEDICARE, MEDICAID, SELFPAY ==
[2025-01-16 13:31] VITALS: BP 94/67; PULSE 71; RESP 18; TEMP 36.4; O2SAT 99; BMI 25.4
--- NOTE | 2025-01-16 13:31 | XR_ITS ---
WS: [id number] Exam: XR chest 1V portable [id number] Date/Time of Exam: 01/16/2025 1:31 PM Reason For Exam: chest pain Comparison 07/17/2024. Lungs are fully expanded and clear. Normal cardiomediastinal silhouette. Status post median sternotomy. No pleural effusion. Moderate DJD of the LEFT shoulder. XR/XR chest 1V portable [id number] IMPRESSION: 1. No acute cardiopulmonary finding.
--- NOTE | 2025-01-16 13:34 | ECG_ITS ---
[facility] Test Date: 2025-01-16 Pat Name: Beth Trinh Department: Room: Gender: Female Brand Marketing Specialist: : [id number] Requested By: Kd Aggarwal Order Number: [id number] Simone MD: Preston Grace M.D. Measurements Intervals [place] Rate: 71 P: 70 IA: 174 QRS: 34 QRSD: 90 T: 53 QT: 383 QTc: 418 Interpretive Statements SINUS RHYTHM Compared to ECG 07/17/2024 15:30:38 No significant changes Electronically Signed On 01-16-2025 20:54:45 CDT by Preston Grace M.D. [email or web address]
--- OUTSIDE RECORDS SUMMARY | 2025-01-16 13:35 | XMS_ITS | Encounter Summary ---
Author Organization [facility] Address [address] [place] [address] Care Team Providers Care Airplane And Engine Inspector Name Role Phone Diego Samaniego DO Primary Care Provider Unava ilable Reason for Referral * CT Scan (Routine) - Closed Specialty Diagnoses / Procedures Referred By Contac t Referred To Contact Radiology Diagnoses Abnormal findings on diagnostic imaging of other specified body structures Procedures CT CHEST WO CONTRAST Anaya Gomez FNP [address] [place] [address] Phone: tel: fax: [facility] [address] [address] Phone: tel: fax: Referral ID Status Reason Start Date Expiration Date V isits Requested Visits Authorized [id number] Closed [facility] TO SCHEDULE (SGF) 08/06/2019 11/03/2019 1 1 Encounter Details Date Type Department Care Team (Latest Contact Info) Description 08/03/2019 Ancillary Orders [facility] [place] CALL TO MAKE APPOINTMENT ONLY [address] [place] [address] Anaya Gomez FNP [address] [place] [address] Abnormal findings on diagnostic imaging of other specified body structures Social History Tobacco Use Types Packs/Day Years Used Date Smoking Tobacco: Smoker, Current Status Unknown Cigarettes Smokeless Tobacco: Never Alcohol Use Standard Drinks/Week Comments No 0 (1 standard drink = 0.6 oz pur e alcohol) Comments No Sex and Gender Information Value Date Recorded Sex Assigned at Not on file Legal Sex Female 5:09 AM MANAGER EQUITY Gender Identity Not on file Sexual Orientation Not on file documented as of this encounter Plan of Treatment Not on file documented as of this encounter Results * CT CHEST WO CONTRAST (08/07/2019 2:33 PM CDT) Anatomical Region Laterality Modality Chest Computed Tomogra phy 08/07/2019 2:33 PM CDT Impressions 08/08/2019 6:11 AM CDT IMPRESSION: Please see below. Exam: CT CHEST WO CONTRAST Date/Time of Exam: 08/07/2019 2:33 PM Reason For Exam: See Diagnosis. Diagnosis: Abnormal findings on diagnostic imaging of other specified body structures. Technique: CT of the chest was performed without the administration of intravenous contrast. Findings: Prior comparison 01/19/2019. There are smoking-related lung changes, unchanged. No acute focal consolidation, pleural effusion or pneumothorax. Mild central bronchial wall thickening. The trachea bronchial tree is otherwise clear. No mediastinal or perihilar lymphadenopathy. Heart size is normal without pericardial effusion. Unchanged 3.5 cm left pericardial cyst. The aorta is normal course and caliber. Esophagus is unremarkable. Visualized abdomen demonstrates no acute abnormality. Subcentimeter probable cyst arising from the right hepatic lobe. No acute osseous abnormality. Thoracic spondylosis. IMPRESSION: No acute cardiopulmonary disease. Unchanged pericardial cyst. Narrative Procedure Note Jayson Dean DO - 08/08/2019 IMPRESSION: Please see below. Exam: CT CHEST WO CONTRAST Date/Time of Exam: 08/07/2019 2:33 PM Reason For Exam: See Diagnosis. Diagnosis: Abnormal findings on diagnostic imaging of other specified body structures. Technique: CT of the chest was performed without the administration of intravenous contrast. Findings: Prior comparison 01/19/2019. There are smoking-related lung changes, unchanged. No acute focal consolidation, pleural effusion or pneumothorax. Mild central bronchial wall thickening. The trachea bronchial tree is otherwise clear. No mediastinal or perihilar lymphadenopathy. Heart size is normal without pericardial effusion. Unchanged 3.5 cm left pericardial cyst. The aorta is normal course and caliber. Esophagus is unremarkable. Visualized abdomen demonstrates no acute abnormality. Subcentimeter probable cyst arising from the right hepatic lobe. No acute osseous abnormality. Thoracic spondylosis. IMPRESSION: No acute cardiopulmonary disease. Unchanged pericardial cyst. Anaya Gomez [facility] CT ORDERABLES Final Result documented in this encounter Visit Diagnoses Diagnosis Abnormal findings on diagnostic imaging of other specified body structures Abnormal findings on diagnostic imaging of other specified body structures documented in this encounter Additional Health Concerns Infection Onset Date Last Indicated Resolved Time MRSA Comment:Axilla 12/16/10 12/22/2010 12/22/2010 R/O COVID-19 03/30/2020 03/30/2020 03/30/2020 2:42 PM MANAGER EQUITY documented as of this encounter Care Teams Airplane And Engine Inspector Relationship Specialty Start Date End Date Diego Samaniego DO PCP - General Family Practice 04/27/18 documented as of this encounter
--- OUTSIDE RECORDS SUMMARY | 2025-01-16 13:35 | XMS_ITS | Encounter Summary ---
Author Organization [facility] Address [address] [place] [address] Care Team Providers Care Financial Data Analyst Name Role Phone Diego Samaniego DO Primary Care Provider Unava ilable Encounter Details Date Type Department Care Team (Late st Contact Info) Description 02/03/2008 Emergency [facility] Emergency Department [address] [place] [address] Ed, Physician NO ADDRESS ON FILE Lavinia Lopez MD [address] [place] [address] Sobeida Sawant FNP NO ADDRESS ON FILE Social History Tobacco Use Types Packs/Day Years Used Date Smoking Tobacco: Never Assessed Comments Unknown Sex and Gender Information Value Date Recorded Sex Assigned at Not on file Legal Sex Female 5:09 AM NURSING EXECUTIVE Gender Identity Not on file Sexual Orientation Not on file documented as of this encounter Plan of Treatment Not on file documented as of this encounter Procedures Procedure Name Priority Date/Time Associated Diagnosis Comments XR CHEST PA OR AP 1 VW Routine 02/03/2008 5:11 PM CDT BASIC METABOLIC PANEL PLUS Stat 02/03/2008 4:07 PM CDT CARDIAC ENZYMES Stat 02/03/2008 4:07 PM CDT CBC WITH DIFFERENTIAL Stat 02/03/2008 4:07 PM CDT PTT Stat 02/03/2008 4:07 PM CDT PROTIME-INR Stat 02/03/2008 4:07 PM CDT LIPASE Stat 02/03/2008 4:07 PM CDT BASIC METABOLIC PANEL Stat 02/03/2008 4:07 PM CDT documented in this encounter Results * XR CHEST PA OR AP (02/03/2008 5:11 PM CDT) Anatomical Region Laterality Modality Chest Other 02/03/2008 5:11 PM CDT Narrative 02/04/2008 10:35 PM CDT Heart size is normal. The small area of increased attenuation at the left lateral heart border may represent a prominent epicardial fat pad, summation artifact or infiltrate. A lateral projection may be helpful. The right lung is clear. No pleural fluid. The several small round densities overlying the right and left upper chest likely represent overlying artifact. Impression: 1. A left lower lobe infiltrate cannot be excluded. A lateral projection may be helpful. - Dictated By: Lay Metzger M.D. Electronically Signed By: Lay Metzger M.D. Date Signed: 02/04/08 [facility] Procedure Note Alfie Metzger Kaila - 02/04/2008 Heart size is normal. The small area of increased attenuation at the leftlateral heart border may represent a prominent epicardial fat pad, summation artifact orinfiltrate. A lateral projection may be helpful. The right lung is clear. No pleural fluid. The several smallround densities overlying the right and left upper chest likely represent overlying artifact. Impression: 1. A left lower lobe infiltrate cannot be excluded. A lateral projectionmay be helpful. - Dictated By: Lay Metzger M.D. Electronically Signed By: Lay Metzger M.D. Date Signed: 02/04/08 [facility] Lavinia Lopez MD DIAGNOSTIC IMAGING ORDERAB LES Final Result * LIPASE (02/03/2008 4:07 PM CDT) Pathologist [facility] LIPASE 40 6 - 51 U/L [facility] Blood specimen (specimen) 02/03/2008 4:07 PM CDT 02/03/2008 5:07 PM CDT Lavinia Lopez MD CHEMISTRY ORDERABLES Final Result Performing Organization Address [facility] Phone Number INTERFACE SYSTEM Refer to clinic/hospital department [facility] CLIA# [id number] [address] [place] [address] * (ABNORMAL) BASIC METABOLIC PANEL PLUS (02/03/2008 4:07 PM CDT) [facility] ALT 20 4 - 36 IU/L [facility] ALBUMIN 4.4 3.5 - 5.0 g/dL [facility] ALKALINE PHOSPHATASE 104(H) 25 - 100 U/L [facility] BILIRUBIN TOTAL 0.3 0.3 - 1.2 mg/dL [facility] TOTAL PROTEIN 6.8 6.3 - 8.2 g/dL [facility] AST 18 8 - 33 U/L [facility] Blood specimen (specimen) 02/03/2008 4:07 PM CDT 02/03/2008 5:07 PM CDT us Lavinia Lopez MD CHEMISTRY ORDERABLES Final Result Performing Organization Address [facility] Phone Number INTERFACE SYSTEM Refer to clinic/hospital department [facility] CLIA# [id number] [address] [place] [address] * BASIC METABOLIC PANEL (02/03/2008 4:07 PM CDT) Pathologist [facility] SODIUM 144 136 - 145 mEq/L [facility] ANION GAP 10 9 - 20 mEq/L [facility] BUN 13 7 - 17 mg/dL [facility] CO2 30 22 - 32 mmol/l [facility] POTASSIUM 3.7 3.5 - 5.0 mEq/L [facility] OSMOLALITY, CALCULATED 294 275 - 295 mOsm/Kg [facility] CREATININE 1.1 0.7 - 1.2 mg/dL [facility] CALCIUM 9.7 8.4 - 10.5 mg/dL [facility] GLUCOSE 88 70 - 110 mg/dL [facility] CHLORIDE 108 95 - 110 mEq/L [facility] Blood specimen (specimen) 02/03/2008 4:07 PM CDT 02/03/2008 4:49 PM CDT us Lavinia Lopez MD CHEMISTRY ORDERABLES Final Result Performing Organization Address City/State/[facility] Co de Phone Number INTERFACE SYSTEM Refer to clinic/hospital department [facility] CLIA# [id number] [address] [place] [address] * (ABNORMAL) CBC WITH DIFFERENTIAL (02/03/2008 4:07 PM CDT) HEMOGLOBIN 14.5 12.0 - 16.0 g/dL [facility] RDW 14.4 11.0 - 14.5 % [facility] MONOCYTE ABSOLUTE 0.6 0.1 - 0.6 K/ul [facility] MONOCYTES 7.2 2.0 - 10.0 % [facility] WBC 8.9 4.5 - 11.0 K/ul [facility] MCH 30.7 27.0 - 34.0 pg [facility] NEUTROPHIL ABSOLUTE 4.0 2.0 - 8.0 K/ul [facility] NEUTROPHILS 44.4 42.2 - 75.2 % [facility] HEMATOCRIT 44.3 36.0 - 46.0 % [facility] EOSINOPHILS 6.0 0.0 - 7.0 % [facility] PLATELETS 448(H) 140 - 440 K/ul [facility] EOSINOPHIL ABSOLUTE 0.5 0.0 - 0.7 K/ul [facility] RBC 4.72 4.20 - 5.40 Mil/ul [facility] LYMPHOCYTES 41.6 24.0 - 44.0 % [facility] MCHC 32.7 30.0 - 35.0 g/dL [facility] LYMPHOCYTE ABSOLUTE 3.7 1.2 - 4.0 K/ul [facility] MCV 93.9 84.0 - 103.0 Fl [facility] MPV 10.5 8.9 - 12.8 Fl [facility] BASOPHILS ABSOLUTE 0.1 0.0 - 0.2 K/ul [facility] BASOPHILS 0.8 0.0 - 1.0 % [facility] Blood specimen (specimen) 02/03/2008 4:07 PM CDT 02/03/2008 4:49 PM CDT Lavinia Lopez MD HEMATOLOGY ORDERABLES Mag l Result Performing Organization Address [facility] Phone Number INTERFACE SYSTEM Refer to clinic/hospital department [facility] CLIA# [id number] [address] [place] [address] * PTT (02/03/2008 4:07 PM CDT) PTT 32.7 22.5 - 36.5 Secs [facility] Comment: Therapeutic Range: Hi-level PE/DVT heparin protocol 80.1 -95.0 sec Lo-level PE/DVT heparin protocol 67.1 - 80.0 sec Cardiac Heparin Protocol 67.1 - 85.0 sec Neuro Heparin Protocol 67.1 - 80.0 sec As of 07/13/2007 note change in APTT Normal Range. Blood specimen (specimen) 02/03/2008 4:07 PM CDT 02/03/2008 4:49 PM CDT Lavinia Lopez MD HEMATOLOGY ORDERABLES Mag l Result Performing Organization Address [facility] Phone Number INTERFACE SYSTEM Refer to clinic/hospital department [facility] CLIA# [id number] [address] [place] [address] * PROTIME-INR (02/03/2008 4:07 PM CDT) PROTIME 14.7 12.8 - 15.8 Secs [facility] Comment:As of 2007 not e change in normal range. INR 1.0 [facility] Comment: Expected Values for INR: DVT/PE Goal INR 2.5; range 2.0 - 3.0 Valve Replacement Tissue Goal INR 2.5; range 2.0 - 3.0 Mechanical Goal INR 3.0; range 2.5 - 3.5 POST-IA Goal INR 2.5; range 2.0 - 3.0 or Goal 3.0; range 2.5 - 3.5 Atrial Fibrillation Goal INR 2.5; range 2.0 - 3.0 Ischemic Stroke Goal INR 2.5; range 2.0 - 3.0 For additional information see Guidelines for Anticoagulation available from the pharmacy Marissa Nicholas D. [phone] Blood specimen (specimen) 02/03/2008 4:07 PM CDT 02/03/2008 4:49 PM CDT Lavinia Lopez MD HEMATOLOGY ORDERABLES Mag l Result Performing Organization Address [facility] de Phone Number INTERFACE SYSTEM Refer to clinic/hospital department [facility] CLIA# [id number] [address] [place] [address] * CARDIAC ENZYMES (02/03/2008 4:07 PM CDT) Pathologist [facility] TROPONIN I <0.1 0.0 - 1.3 ng/mL [facility] CKMB 0.7 0.0 - 5.0 ng/mL [facility] Blood specimen (specimen) 02/03/2008 4:07 PM CDT 02/03/2008 4:49 PM CDT us Lavinia Lopez MD CHEMISTRY ORDERABLES Final Result Performing Organization Address City/[facility]/ZIP Co de Phone Number INTERFACE SYSTEM Refer to clinic/hospital department [facility] CLIA# [id number] [address] [place] [address] documented in this encounter Visit Diagnoses Not on filedocumented in this encounter Additional Health Concerns Infection Onset Date Last Indicated Resolved Time MRSA Comment:Axilla 12/16/10 12/22/2010 12/22/2010 R/O COVID-19 03/30/2020 03/30/2020 03/30/2020 2:42 PM NURSING EXECUTIVE documented as of this encounter Care Teams Financial Data Analyst Relationship Specialty Start Date End Date Diego Samaniego DO PCP - General Family Practice 04/27/18 documented as of this encounter
--- OUTSIDE RECORDS SUMMARY | 2025-01-16 13:35 | XMS_ITS | Encounter Summary ---
Author Organization [facility] Address [address] [place] [address] Care Team Providers Care Used Car Make Ready Mechanic Name Role Phone Diego Samaniego DO Primary Care Provider Unava ilable Encounter Details Date Type Department Care Team (Late st Contact Info) Description 05/06/2020 Ancillary Orders [facility] [place] [address] Samir Garcia DO [address] [place] [address] Left shoulder pain, unspecified chronicity Social History Tobacco Use Types Packs/Day Years Used Date Smoking Tobacco: Smoker, Current Status Unknown Cigarettes Smokeless Tobacco: Never Alcohol Use Standard Drinks/Week Comments No 0 (1 standard drink = 0.6 oz pur e alcohol) Comments No Sex and Gender Information Value Date Recorded Sex Assigned at Not on file Legal Sex Female 5:09 AM WOOD GLUER Gender Identity Not on file Sexual Orientation Not on file COVID-19 Exposure Response Date Recorded In the last month, have you been in contact with someone who was confirmed or suspected to have Coronavirus / COVID-19? 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 She has osteophytes on the glenoid and humeral side. Samir Garcia D.O. [facility] MARIA EUGENIA/marina Samir Garcia DO DIAGNOSTIC IMAGING ORDERAB LES Final Result documented in this encounter Visit Diagnoses Diagnosis Left shoulder pain, unspecified chronicity Left shoulder pain, unspecified chronicity documented in this encounter Additional Health Concerns Infection Onset Date Last Indicated Resolved Time MRSA Comment:Axilla 12/16/10 12/22/2010 12/22/2010 documented as of this encounter Care Teams Used Car Make Ready Mechanic Relationship Specialty Start Date End Date Diego Samaniego DO PCP - General Family Practice 04/27/18 documented as of this encounter
--- OUTSIDE RECORDS SUMMARY | 2025-01-16 13:35 | XMS_ITS | Clinical Summary ---
Author Organization [facility] Address [address] [place] [address] Care Team Providers Care Medical Reception Name Role Phone Diego Samaniego DO Primary Care Provider Unava ilable Allergies Active Allergy Reactions Criticality Noted Date Comments Unclassified Drug Anaphylaxis High 03/03/2008 States that was given to stop labor and caused her a heart attack--could have been terbutaline Medications ondansetron (ZOFRAN ODT) 4 mg Tablet, Rapid Dissolve Take 1 Tablet (4 mg) by mouth every 8 hours as needed for Nausea/Emesis Dissolve tablet on top of tongue, then swallow with saliva.. 15 Tablet 8 Active albuterol HFA 90 mcg inhaler Take 2 Puffs by inhalation every 6 hours as needed for Shortness of Breath. 8.5 Gram 5 9 Active MYRBETRIQ 50 mg Extended Release 24 hour tablet TK 1 T PO QD 11 9 Active ipratropium-albut rafael (DUONEB) 0.5 mg-3 mg(2.5 mg base)/3 mL Solution for Nebulization INHALE THE CONTENTS OF 1 VIAL VIA NEB QID 10 9 Active metoprolol succinate (TOPROL XL) 25 mg Extended Release 24 hour tablet TK 1 T PO QD 0 Active pantoprazole (Protonix) 40 mg Tablet, Delayed Release (E.C.) Take 40 mg by mouth daily. Active aspirin (Aspirin Low Dose) 81 mg Tablet, Delayed Release (E.C.) Take 1 Tablet (81 mg) by mouth daily. 30 Tablet 5 1 Active Trelegy Ellipta 100-62.5-25 mcg Disk with Device INHALE 1 PUFF BY MOUTH EVERY DAY AT THE SAME TIME OF DAY 1 Active meloxicam (MOBIC) 15 mg tablet 1 Active Active Problems Problem Noted Date Diagnosed Date Atherosclerosis of both carotid arteries 021 Other chest pain 06/25/2020 Gastroenteritis, acute 04/08/2020 Hiatal hernia 04/08/2020 Pericardial cyst 08/19/2019 Tobacco abuse 01/04/2018 Hx of type B viral hepatitis 01/04/2018 History of ADHD 01/04/2018 Nausea alone 12/23/2010 COPD (chronic obstructive pulmonary disease) Gastroesophageal reflux disease 12/16/2010 Dental caries 12/16/2010 Resolved Problems Problem Noted Date Diagnosed Date Resolved Date Elevated SGOT (AST) 12/29/2010 01/05/20 18 Epigastric abdominal pain 12/23/2010 Pleurisy 12/16/2010 01/04/2018 Hyperglycemia 12/16/2010 01/04/2018 Axillary abscess 12/16/2010 01/04/2018 MRSA (methicillin resistant staph aureus) culture positive 12/16/2010 01/04/2018 Overview (12/22/2010): Axilla Family History Medical History Relation Name Comments Diabetes Brother Diabetes Father Liver Disease Father Melanoma Father Diabetes Mother Heart Disease Mother Hypertension Mother Diabetes Sister Relation Name Status Comments Brother Father Alive Mother Alive Sister Alive Social History Tobacco Use Types Packs/Day Years Used Date Smoking Tobacco: Every Day Cigarettes Smokeless Tobacco: Never Tobacco Cessation:Ready to Q uit: No; Counseling Given: Yes Comments:Currently smokes .5 - 1 ppd - 08/06/20 Alcohol Use Standard Drinks/Week Comments No 0 (1 standard drink = 0.6 oz pur e alcohol) Comments No Sex and Gender Information Value Date Recorded Sex Assigned at Not on file Legal Sex Female 5:09 AM PLAN REP Gender Identity Not on file Sexual Orientation Not on file Last Filed Vital Signs Vital Sign Reading Time Taken Comments Blood Pressure 125/75 08/06/2020 3:21 PM CDT Pulse 78 08/06/2020 3:21 PM CDT Temperature 36.7 C (98.1 F) 04/08/2020 5:08 PM PLAN REP Respiratory Rate 18 04/08/2020 6:39 PM PLAN REP Oxygen Saturation 94% 08/06/2020 3:21 PM CDT Inhaled Oxygen Concentration - - Weight 68.5 kg (151 lb) 08/06/2020 3:21 PM CDT Height 154.9 cm (5' 1 ) 08/06/2020 3:21 PM CDT Body Mass Index 28.53 08/06/2020 3:21 PM CDT Plan of Treatment Health Maintenance Due Date Last Done Comments DTAP/TDAP/TD VACCINES (1 - Tdap) 1984 HEPATITIS B VACCINES (1 of 3 - 19+ 3-dose series) 03/27 HPV/Cotest (21-29) 1986 HPV/Cotest (30-65) 1995 BREAST CANCER SCREENING 2005 COLORECTAL SCREENING 2010 Colorectal Cancer Screening 2010 FIT-DNA Q 3 years 2010 FIT/FOBT Q 1 year 2010 Flex Sig/CT Colonography Q 5 years 2010 ZOSTER VACCINE (1 of 2) 2015 CERVICAL CANCER SCREENING 06/29/2018 PAP SMEAR 06/29/2018 06/30/2015 INFLUENZA VACCINE (#1) 2024 03/25/2013 Additional Health Concerns Infection Onset Date Last Indicated MRSA Comment:Axilla 12/16/10 12/22/2010 12/22/2010 Insurance Member Subscriber Plan / Payer (Ef fective 2018-Present) Name:Beth Trinh Relation to Subscriber:Self Name:Beth Trinh Payer ID:[id number] Group ID:Not on file Type:Medicaid Address: [address] Care Teams Medical Reception Relationship Specialty Start Date End Date Diego Samaniego DO PCP - General Family Practice 04/27/18
[2025-01-16 13:37] VITALS: BP 94/67; PULSE 77; O2SAT 97
--- NOTE | 2025-01-16 13:37 | ED_ITS ---
HPI - Chest Pain 2 General: Chief Complaint: Chest Pain Stated Complaint: chest pain Time Seen by Provider: 01/16/25 13:31 History of Present Illness: 59-year-old female presents to the emerg ency room with via EMS with complaints of chest pain. Patient was home at rest started having chest discomfort. No radiation into the neck or back. No recent fever sweats or chills. No productive cough. Associated symptoms: Deny abdominal pain, dyspnea or fever(s) Related Data Home Medications ?Medication ?Instructions ?Recorded ?Confirmed acetaminophen 325 mg tablet 650 mg PO QID PRN Fever Or Pain 07/17/24 01/16/25 (Tylenol) ibuprofen 200 mg tablet (Advil) 400 mg PO Q6H PRN Feve r Or Pain 07/17/24 01/16/25 potassium gluconate 600 mg (99 mg) 600 mg PO DAILY 01/16/25 tablet oxygen 01/08/25 01/16/25 Previous Rx's ?Medication ?Instructions ?Recorded metoprolol succinate 25 mg 25 mg PO DAILY #90 tabs tablet,extended release 24 hr albuterol sulfate 90 mcg/actuation See Rx Instructions .Route 11/14/24 aerosol inhaler .COMPLEX #8.5 grams arformoterol 15 mcg/2 mL solution 2 ml inhalation Q12H #120 mL 01/08/25 for nebulization (Brovana) varenicline tartrate 0.5 mg (11)-1 See Rx Instructions PO PER PKG DIR 01/09/25 mg (42) tablets in a dose pack #53 ea ([facility] Starting Month Box) Nebulizer #1 ea 01/10/25 famotidine 20 mg tablet See Rx Instructions .Route 0 01/14/25 .COMPLEX #60 tabs hydrocodone 5 mg-acetaminophen 325 1 tab PO Q6H PRN pa in #12 tabs 01/16/25 mg tablet Allergies Allergy/AdvReac Type Severity Reaction Status Date / Time codeine Allergy Mild rash Verified 01/15/25 14:32 Review of Systems 2 Const: Denies: fever(s) or chills Card: Reports: chest pain Resp: Denies: dyspnea GI: Denies: abdominal pain : Denies: dysuria, urinary frequency or urinary urgency Musc: Denies: neck pain or back pain Skin/Breast: Denies: rash PFS ED 2 PFSH: Medical History Hiatal hernia COPD (chronic obstructive pulmonary disease) Smoker Chronic respiratory failure Anxiety Surgical History History of repair of hiatal hernia History of cholecystectomy History of tonsillectomy History of arthroplasty of finger of right hand History of abdominal surgery History of breast biopsy Social History Smoking and tobacco/nicotine status: current every day tobacco/nicotine user (1/2 ppd X 44 years) cigarettes Alcohol intake: current Alcohol intake frequency: holidays/special occasions only Physical Exam 2 Const: ORIENTATION/CONSCIOUSNESS: Yes awake, Yes oriented to person, Yes oriented to place and Yes oriented to time HENMT: COMMON NORMALS: normocephalic, atraumatic and hearing grossly normal bilaterally HEAD & SCALP: normocephalic and atraumatic Resp: COMMON NORMALS: normal respiratory effort, No retractions, No use of accessory muscles and clear to auscultation bilaterally AUSCULTATION: clear to auscultation bilaterally Cardio: COMMON NORMALS: regular rate, regular rhythm and No murmurs present (Cardio) RATE: regular rate RHYTHM: regular rhythm GI: COMMON NORMALS: Soft to palpation and No hepatosplenomegaly present A USCULTATION: Yes normoactive bowel sounds PALPATION: Yes Soft to palpation, No Tenderness to palpation present (GI), No Guarding due to palpation present (GI) and Yes No hepatosplenomegaly present Extremity: COMMON NORMALS: normal to inspection, capillary refill normal, no clubbing, cyanosis or edema, no calf tenderness and no pedal edema Neuro: SENSORIUM/ORIENTATION: Yes oriented to person, Yes oriented to place and Yes oriented to time Skin: COMMON NORMALS: no rashes or lesions noted GENERAL SKIN EXAM: no rashes or lesions noted Course 2 Vital Signs: Vital signs: Vital Signs Temperature 97.6 F 01/16/25 13:31 Pulse Rate 80 01/16/25 16:24 Respiratory Rate 17 01/16/25 16:24 Blood Pressure 166/113 01/16/25 16:24 Pulse Oximetry 95 01/16/25 16:24 Oxygen Delivery Me thod Room Air 01/16/25 15:02 MDM - Chest Pain Medical Decision Making Patient presented emergency room complaint of chest pain is worse with deep inspiration. Did respond to medications given her cardiac enzymes EKG did not show any acute changes chest x-ray was normal. Blood gas was normal as well will discharge patient home and have her follow-up with primary care she can return if worsens Medical Records I reviewed the patient's medical records. Lab Data I reviewed the patient's lab results. 01/16/25 13:40 01/16/25 13:40 Radiology Impressions Chest X-Ray 01/16/25 13:31 IMPRESSION: 1. No acute cardiopulmonary finding. Laboratory Results WBC 10.66 10^3/uL (3.29-11.43) 01/16/25 13:40 RBC 4.43 10^6/uL (3.85-5.65) 01/16/25 13:40 Hgb 13.80 g/dL (11.27-16.99) 01/16/25 13:40 Hct 42.8 % (36-47) 01/16/25 13:40 MCV 96.6 fl (85-98) 01/16/25 13:40 MCH 31.2 pg (27-33) 01/16/25 13:40 MCHC 32.2 g/dL (30-55) 01/16/25 13:40 RDW 13.6 % (12.1-15.1) 01/16/25 13:40 Plt Count 381 10^3/cmm (157-399) 01/16/25 13:40 MPV 9.8 fL (7.4-10.4) 01/16/25 13:40 Neut % (Auto) 60.4 % 01/16/25 13:40 Lymph % (Auto) 26.3 % 01/16/25 13:40 [place] % (Auto) 8.6 % 01/16/25 13:40 Eos % (Auto) 3.8 % 01/16/25 13:40 Baso % (Auto) 0.8 % 01/16/25 13:40 Neut # (Auto) 6.43 10^3/uL (1.8-7.7) 01/16/25 13:40 Lymph # (Auto) 2.8 10^3/uL (0.8-4.8) 01/16/25 13:40 [place] # (Auto) 0.9 10^3/uL (0.2-0.9) 01/16/25 13:40 Eos # (Auto) 0.4 10^3/uL (0.0-0.8) 01/16/25 13:40 Baso # (Auto) 0.1 10^3/uL (0.0-0.1) 01/16/25 13:40 Nucleated RBC % (auto) 0 % 01/16/25 13:40 Nucleated RBCs # 0.0 /100WBC 01/16/25 13:40 Specimen Type Arterial 01/16/25 15:00 Sample Site Radial, right 01/16/25 15:00 ABG pH 7.42 (7.35-7.45) 01/16/25 15:00 ABG pCO2 42.3 mmHg (35-45) 01/16/25 15:00 ABG pO2 71.2 mmHg (80.0-100.0) L 01/16/25 15:00 ABG PO2/FiO2 Ratio 339 01/16/25 15:00 ABG HCO3 27.4 mmol/L (22-26) H 01/16/25 15:00 ABG O2 Saturation 97.1 01/16/25 15:00 ABG Base Excess 2.6 mmol/L (-2.0-2.0) H 01/16/25 15:00 Karl Test Pos 01/16/25 15:00 A-a O2 Gradient 3.3 mmHg (5-10) L 01/16/25 15:00 Hematocrit 44.1 % (37-47) 01/16/25 15:00 Hgb O2 Saturation 92.7 % (95-100) L 01/16/25 15:00 Carboxyhemoglobin 3.5 %THgb (0.4-20.1) 01/16/25 15:00 Methemoglobin 1.0 % (0.4-1.5) 01/16/25 15:00 Total Hemoglobin 14.4 g/dL (12-16) 01/16/25 15:00 Sodium 141.0 mmol/L (131-143) 01/16/25 15:00 Potassium 4.0 mmol/L (3.5-5.0) 01/16/25 15:00 Glucose 92.0 mg/dL (70-115) 01/16/25 15:00 Ionized Calcium 1.2 mmol/L (1.1-1.4) 01/16/25 15:00 O2 Delivery Device Room air 01/16/25 15:00 FiO2 21.0 % 01/16/25 15:00 Atomic Fuel Assembler ID Ender 01/16/25 15:00 Sodium 140 mmol/L (136-145) 01/16/25 13:40 Potassium 3.8 mmol/L (3.5-5.1) 01/16/25 13:40 Chloride 104 mmol/L (98-107) 01/16/25 13:40 Carbon Dioxide 29 mmol/L (22-29) 01/16/25 13:40 Anion Gap 10.8 (5-19) 01/16/25 13:40 BUN 18 mg/dL (6-20) 01/16/25 13:40 Creatinine 0.8 mg/dL (0.5-0.9) 01/16/25 13:40 GFR Calculation 73.4 mL/min (90-130) L 01/16/25 13:40 Glucose 73 mg/dL (65-115) 01/16/25 13:40 Calculated Osmolality 290 mOsm/kg (285-295) 01/16/25 13:40 Calcium 9.0 mg/dL (8.5-10.5) 01/16/25 13:40 Total Bilirubin 0.3 mg/dL (0.15-1.2) 01/16/25 13:40 AST 11 U/L (0-32) 01/16/25 13:40 ALT 12 U/L (0-33) 01/16/25 13:40 Alkaline Phosphatase 105 U/L (35-105) 01/16/25 13:40 Troponin T Baseline 9 ng/L (0-10) 01/16/25 13:40 Troponin T 120 Minute 8.85 ng/L (0-10) 01/16/25 15:19 Delta Troponin T -0.15 ABS# (0-10) L 01/16/25 15:19 Total Protein 6.2 g/dL (6.6-8.7) L 01/16/25 13:40 Albumin 3.7 g/dL (3.5-5.2) 01/16/25 13:40 Globulin 2.5 g/dL (1.3-4.6) 01/16/25 13:40 All radiology interpretation(s) finalized by discharge EKG Data EKG 1: Interpretation: 01/16/2025 1334 sinus rhythm rate of 71, WA interval of 174 QTc 418 compared EKG 07/17/2024 no changes no acute ST changes noted. EKG 2: Interpretation: EKG 01/16/2025 1552 sinus rhythm rate of 78 WA interval 195 QTc [address] changes noted. No significant change from EKG done earlier same day Discharge Plan Discharge Patient Disposition: Home Clinical Impression: Pleuritic chest pain Condition: Stable Prescriptions: New hydrocodone-acetaminophen 5-325 mg tablet 1 tab PO Q6H PRN (Reason: pain) Qty: 12 0RF No Action metoprolol succinate 25 mg tablet extended release 24 hr 25 mg PO DAILY Qty: 90 3RF varenicline tartrate [[facility] Starting Month Box] 0.5 mg (11)- 1 mg (42) tablets,dose pack See Rx Instructions PO PER PKG DIR Qty: 53 0RF Rx Instructions: PO PER PKG DIR (DME) oxygen 0 .Route .MEDSUPPLY arformoterol [Brovana] 15 mcg/2 mL solution for nebulization 2 ml inhalation Q12H Qty: 120 6RF albuterol sulfate 90 mcg/actuation HFA aerosol inhaler See Rx Instructions .ROUTE .COMPLEX Qty: 8.5 2RF Dose Instruction: INHALE 2 PUFFS BY MOUTH EVERY 6 HOURS NEEDED FOR SHORTNESS OF BREATH Rx Instructions: INHALE 2 PUFFS BY MOUTH EVERY 6 HOURS NEEDED FOR SHORTNESS OF BREATH (DME) Nebulizer See Rx Instructions .Route .MEDSUPPLY Qty: 1 0RF Rx Instructions: As directed famotidine 20 mg tablet See Rx Instructions .ROUTE .COMPLEX Qty: 60 5RF Dose Instruction: TAKE ONE TABLET BY MOUTH TWICE DAILY Rx Instructions: TAKE ONE TABLET BY MOUTH TWICE DAILY acetaminophen [Tylenol] 325 mg Tablet 650 mg PO QID PRN (Reason: Fever Or Pain) ibuprofen [Advil] 200 mg Tablet 400 mg PO Q6H PRN (Reason: Fever Or Pain) potassium gluconate 600 mg (99 mg) Tablet 600 mg PO DAILY Discharge Orders: Discharge ED (Routine); Ordered 01/16/25 Ordered By: Kd Valenzuela Referrals: Lorraine Braden NP [Primary Care Provider, Family Practice] Discharge Diet: Usual diet Discharge Activity: Increase activity as tolerated Patient Instructions: Opioid Safety, Pain Management, Patient Portal & Angelika Instructions Activity Restrictions/Additional Instructions: [facility]. It is very important that you follow up as instructed or that you return to the Emergency Department should you have concerns or if your condition changes or worsens in any way. Emergency department visits are focused on emergent conditions, in some cases you may require further evaluation on an outpatient basis. You are seen in the emergency room with complaints of chest discomfort worse with deep breathing. Your cardiac enzymes and EKGs did not show any acute changes your chest x-ray was normal. Your oxygen saturation remained normal while you are in the emergency room. Your chest pain is more pleuritic in nature will discharge you home with hydrocodone to use 1 every 6 hours as needed. (Please note that included in your discharge packet is information concerning opioid safety and pain management. This information is given to all patients were discharged from the ER regardless of their discharge diagnosis or the medicines they usually take or are prescribed.) Print Language: Mongolian Coding Level of Care Code ED Roving Hauler for Bryson Moseley
[2025-01-16 13:52] LABS: Hematocrit 42.8 % (36-47); Hemoglobin 13.80 g/dL (11.27-16.99); Mean Corpuscular HGB Conc 32.2 g/dL (30-55); Mean Corpuscular Hemoglobin 31.2 pg (27-33); Mean Corpuscular Volume 96.6 fl (85-98); Nucleated Red Blood Cells % 0 %; Platelet Count 381 10^3/cmm (157-399); Red Blood Count 4.43 10^6/uL (3.85-5.65); White Blood Count 10.66 10^3/uL (3.29-11.43)
[2025-01-16 14:05] LABS: Troponin(5th) Baseline 9 ng/L (0-10)
[2025-01-16 14:11] LABS: Alanine Aminotransferase 12 U/L (0-33); Albumin Level 3.7 g/dL (3.5-5.2); Alkaline Phosphatase 105 U/L (35-105); Anion Gap 10.8 (5-19); Aspartate Amino Transferase 11 U/L (0-32); Blood Urea Nitrogen 18 mg/dL (6-20); Calcium 9.0 mg/dL (8.5-10.5); Carbon Dioxide 29 mmol/L (22-29); Chloride 104 mmol/L (98-107); Creatinine Clr Calc Pharmacy 63.5595; Globulin 2.5 g/dL (1.3-4.6); Glucose 73 mg/dL (65-115); Osmolality Calculated 290 mOsm/kg (285-295); Potassium 3.8 mmol/L (3.5-5.1); Sodium 140 mmol/L (136-145); Total Protein 6.2 g/dL (6.6-8.7)
[2025-01-16 15:02] VITALS: PULSE 73; RESP 20; O2SAT 97
[2025-01-16] MEDS: LORazepam 1 MG/0.5 ML injection IVP (15:09)
[2025-01-16] MEDS: methylPREDNISolone sod succ 125 mg/2 mL INJ IVP (15:10)
[2025-01-16 15:11] LABS: ABG PCO2 42.3 mmHg (35-45); ABG PH Result 7.42 (7.35-7.45); Alveolar-Arterial Oxygen Gradi 3.3 mmHg (5-10); Arterial Blood Gas Hematocrit 44.1 % (37-47); Blood Gas Allen Test Pos; Blood Gas Operator Identificat WALCI; Blood Gas Sample Site Radial, right; Blood Gas Sample Type Arterial; Carboxyhemoglobin 3.5 %THgb (0.4-20.1); Glucose Level-ABG 92.0 mg/dL (70-115); HCO3 ABG 27.4 mmol/L (22-26); Ionized Calcium Level - ABG 1.2 mmol/L (1.1-1.4); Methemoglobin 1.0 % (0.4-1.5); Oxygen Saturation ABG 97.1; PO2 ABG 71.2 mmHg (80.0-100.0); PO2 FiO2 Ratio Arterial Blood 339; Potassium Level - ABG 4.0 mmol/L (3.5-5.0); Sodium Level - ABG 141.0 mmol/L (131-143)
[2025-01-16] MEDS: morphine 4 mg/mL SDV 1 mL 2 MG IVP (15:12)
--- NOTE | 2025-01-16 15:31 | ECG_ITS ---
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 Measurements Intervals [place] Rate: 78 P: 73 VA: 195 QRS: 32 QRSD: 92 T: 57 QT: 375 QTc: 427 Interpretive Statements SINUS RHYTHM MINIMAL VOLTAGE CRITERIA FOR LVH, CONSIDER NORMAL VARIANT [MEETS CRITERIA IN ONE OF: R(aVL), S(V1), R(V5), R(V5/V6)+S(V1)] Compared to ECG 01/16/2025 13:34:37 No significant changes Electronically Signed On 01-16-2025 22:36:58 CDT by Preston Grace M.D. [email or web address]
[2025-01-16 15:41] LABS: Troponin 5 2HR 8.85 ng/L (0-10)
[2025-01-16 15:42] LABS: Troponin 5 2HR Delta -0.15 ABS# (0-10)
[2025-01-16 16:07] VITALS: RESP 16
[2025-01-16] MEDS: lidocaine 2% viscous 15 ML, aluminum-mag hydrox-simethicon 30 ML, sucralfate oral liq 1 GM PO (16:07)
[2025-01-16] MEDS: morphine 4 mg/mL SDV 1 mL IVP (16:07)
[2025-01-16 16:24] VITALS: BP 166/113; PULSE 80; RESP 17; O2SAT 95
[2025-01-16 16:36] VITALS: BP 141/85; PULSE 84; O2SAT 94
== END 2025-01-16 16:37 | disposition home or self-care (01) ==
PROVIDERS: Emergency Provider Family Medicine; PCP Nurse Practitioner Family
DX: R07.81 Pleurodynia (principal); F17.210 Nicotine dependence, cigarettes, uncomplicated; J44.9 Chronic obstructive pulmonary disease, unspecified
CPT/HCPCS: 36415; 36600; 71045; 80051; 80053; 82330; 82805; 84484; 85025; 93005; 94640; 96374; 96375; 96376; 99285; J1885; J2060; J2270; J2919; J7030; J9999

== ENCOUNTER 2025-01-18 14:42 | Outpatient (CLI) | payer MEDICARE, MEDICAID, SELFPAY ==
--- NOTE | 2025-01-18 15:00 | XR_ITS ---
WS: [id number] SCREENING DEXA SCAN [facility] CLINICAL INFORMATION: Z78.0 - Asymptomatic menopausal state COMPARISON: None. FINDINGS: The L1-L4 bone mineral density measures 0.831 g/cm2. This corresponds to a T score score of -2.9 and Z score of -1.8. Left femoral neck bone mineral density measures 0.705 g/cm2. This corresponds to a T score of -2.4 and Z score of -1.5. Right femoral neck bone mineral density measures 0.679 g/cm2. This corresponds to a T score -2.6of and Z score of -1.7. Mean femoral neck bone mineral density measures 0.692 g/cm2. This corresponds to a T score of -2.5 and Z score of -1.6. XR/XR DEXA axial skeleton* 55795 IMPRESSION: Osteoporosis lumbar spine and femoral necks. Patient's FRAX calculated 10 year probability for major osteoporotic fracture i s 24.7% and osteoporotic hip fracture is 5.9%.
== END 2025-01-18 14:43 | disposition home or self-care (01) ==
LOC: RAD 14:44
PROVIDERS: PCP Nurse Practitioner Family; Visit Provider Nurse Practitioner Family
DX: R07.81 Pleurodynia (principal); I65.23 Occlusion and stenosis of bilateral carotid arteries; R00.2 Palpitations; F17.210 Nicotine dependence, cigarettes, uncomplicated; Z13.820 Encounter for screening for osteoporosis; Z78.0 Asymptomatic menopausal state
CPT/HCPCS: 77080; 99204

== ENCOUNTER → 2025-01-23 12:48 | Outpatient (BNVA) | payer MEDICARE, MEDICAID, SELFPAY | PROVIDERS: PCP Nurse Practitioner Family; Visit Provider Internal Medicine | DX: J44.9 Chronic obstructive pulmonary disease, unspecified (principal); J96.10 Chronic respiratory failure, unspecified whether with hypoxia or hypercapnia; F17.210 Nicotine dependence, cigarettes, uncomplicated; Z71.6 Tobacco abuse counseling; Z99.81 Dependence on supplemental oxygen; D75.839 Thrombocytosis, unspecified | CPT/HCPCS: 99214; 99406 ==

== ENCOUNTER 2025-01-24 10:00 | Outpatient (CLI) | payer MEDICARE, MEDICAID, SELFPAY ==
--- NOTE | 2025-01-24 10:30 | USCV_ITS ---
Beth Trinh Age: 59 Gender: F : 1965 Exam Date: 01/24/2025 10:24 Ordering Phys: Preston Grace MD ([email or web address]) Technologist: Exam Location: [facility] [place] Indication: stenosis Risk Factors: Previous Vascular Surgery: Right Brachial BP: / Left Brachial BP: / Right Left Velocity (cm/s) Spectral Plaque Velocity (cm/s) Spectral Plaque Syst/Diast Broadening Syst/Diast Broadening 80.80/ 20.10 Prox CCA 72.50 / 22.10 72.90/ 19.50 Mid CCA 88.10 / 22.50 70.10/ 17.50 Distal CCA 57.30 / 17.20 85.60/ 32.60 Prox ICA 47.00 / 12.70 82.60/ 35.60 Mid ICA 62.20 / 21.50 74.10/ 27.80 Distal ICA 63.50 / 29.50 85.90 ECA 80.70 1.20 ICA/CCA 0.80 Antegrade Vertebral Antegrade 50.80/ 10.30 cm/s 55.00/ 10.70 cm/s Tri Subclavian Tri 133.2 146.1 0 0 FINDINGS TDS due to pt not staying still and coughing CONCLUSIONS Right ICA stenosis <50%. Mild atheromatous plaque right carotid bulb/ICA. Left ICA stenosis <50%. Mild atheromatous plaque left carotid bulb/ICA. Intimal thickening in the common carotid arteries and internal carotid arteries bilaterally. Normal antegrade Doppler flow noted in the right vertebral artery. Normal antegrade Doppler flow noted in the left vertebral artery. Ted Malik MD (Electronically Signed) Final Date: 24 January 2025 11:30 S
== END 2025-01-24 10:01 | disposition home or self-care (01) ==
LOC: RAD 10:07
PROVIDERS: PCP Nurse Practitioner Family; Visit Provider Internal Medicine Cardiovascular Disease
DX: I65.23 Occlusion and stenosis of bilateral carotid arteries (principal)
CPT/HCPCS: 93880

== ENCOUNTER 2025-01-28 17:11 | Outpatient (CLI) | payer MEDICARE, MEDICAID, SELFPAY ==
--- NOTE | 2025-01-28 17:30 | CT_ITS ---
WS: [id number] LDCT LUNG CANCER SCREENING TECHNIQUE: Noncontrast CT of the chest with coronal and sagittal reformatted images. CLINICAL INFORMATION: F17.210 - Nicotine dependence, cigarettes, uncomplicated COMPARISON: None. DLP: 53.62 mGy.cm DIvol: Mean CTDIvol: 1.00 (mGy) All CT scans at [facility] use at least one of these dose optimization techniques: automated exposure control; mA and/or kV adjustment per patient size (includes targeted exams where dose is matched to clinical indication); or iterative reconstruction. FINDINGS: A few small 3 to 4 mm nodules RIGHT upper lobe. Largest measures 4.6 mm RIGHT upper lobe anteriorly. A few small micronodules at the RIGHT lung apex. Chronic emphysematous changes. Fibrosis in the lung apices. Prior sternotomy. Normal caliber thoracic aorta. CABG. Cholecystectomy clips. Large esophageal hiatal hernia. Adrenal glands are normal. No mediastinal or hilar lymphadenopathy. No axillary lymphadenopathy. CT/CT lung screening [id number] IMPRESSION: LUNG-RADS: 2-Benign Appearance or Behavior FOLLOW UP: 12 Month: Continue annual screening with LDCT
== END 2025-01-28 17:12 | disposition home or self-care (01) ==
LOC: RAD 17:12
PROVIDERS: PCP Nurse Practitioner Family; Visit Provider Nurse Practitioner Family
DX: Z12.2 Encounter for screening for malignant neoplasm of respiratory organs (principal); F17.210 Nicotine dependence, cigarettes, uncomplicated; Z86.79 Personal history of other diseases of the circulatory system; Z90.49 Acquired absence of other specified parts of digestive tract; K44.9 Diaphragmatic hernia without obstruction or gangrene
CPT/HCPCS: 71271

== ENCOUNTER 2025-01-29 08:25 | Oncology outpatient (recurring) (ONCR) | payer MEDICARE, MEDICAID, SELFPAY | END 2025-02-22 23:59 | disposition home or self-care (01) | PROVIDERS: PCP Nurse Practitioner Family; Visit Provider Internal Medicine Medical Oncology | DX: D75.839 Thrombocytosis, unspecified (principal); D72.829 Elevated white blood cell count, unspecified; F17.210 Nicotine dependence, cigarettes, uncomplicated | CPT/HCPCS: 99205 ==

== ENCOUNTER 2025-02-12 13:58 | Outpatient (CLI) | payer MEDICARE, MEDICAID, SELFPAY ==
--- NOTE | 2025-02-12 14:15 | USCV_ITS ---
Beth Trinh Age: 59 Gender: F : 1965 Exam Date: 02/12/2025 14:13 Ordering Phys: Preston Grace MD ([email or web address]) Technologist: Exam Location: [facility] [place] Indication: cp sob hx of cardio cyst removed BP: 130 / 85 HR: 68 Rhythm: Sinus Technical Quality: Adequate MEASUREMENTS (Male / Female) Normal Values 2D ECHO LV Diastolic Diameter PLAX 3.5 cm 4.2 - 5.9 / 3.9 - 5.3 cm IVS Diastolic Thickness 1.1 cm 0.6 - 1.0 / 0.6 - 0.9 cm IVS Systolic Thickness 1.6 cm LVPW Diastolic Thickness 1.1 cm 0.6 - 1.0 / 0.6 - 0.9 cm LVPW Systolic Thickness 1.6 cm LVOT Diameter 2.0 cm LV Ejection Fraction 2D Teich 67.6 % LV Ejection Fraction MOD 4C 61.1 % LV Ejection Fraction MOD 2C 66.7 % LV Ejection Fraction 2C AL 68.0 % LA Diameter 2.5 cm RA Systolic Volume 4C AL 32.5 ml RA Systolic Volume 4C MOD 31.2 ml LA Sys Volume AL 39.6 cm cubed LA Sys Volume Index AL 24.0 cm cubed/m squared Aorta at Sinotubular Diameter 2.4 cm IVC Diameter 1.2 cm M-MODE LA Ao Ratio MM 1.3 AV Cusp Separation MM 1.6 cm DOPPLER AV Peak Velocity 175.7 cm/s LVOT Peak Velocity 109.0 cm/s AV Area Cont Eq vti 2.2 cm squared AV Area Cont Eq pk 2.0 cm squared MV Peak Velocity 151.0 cm/s MV Area PHT 2.7 cm squared Mitral E to A Ratio 0.9 PV Peak Velocity 111.0 cm/s FINDINGS Left Ventricle Normal left ventricular size, systolic function and no regional wall motion abnormality. Left ventricular ejection fraction is 67%. Indeterminate left ventricular diastolic function due to discordant parameters. Mild concentric left ventricular hypertrophy. Right Ventricle Normal right ventricular size and systolic function. Right Atrium Normal right atrial size. Left Atrium Normal left atrial size. IA Septum Normal appearance of the interatrial septum. Mitral Valve Normal mitral valve structure. No mitral valve stenosis or regurgitation. Aortic Valve Normal aortic valve structure. No aortic valve stenosis or regurgitation. Tricuspid Valve Normal tricuspid valve structure. Trace tricuspid valve regurgitation. Mild pulmonary hypertension, PASP 47 mmHg Pulmonic Valve Normal pulmonic valve structure. No pulmonic valve stenosis or regurgitation. Pericardium No pericardial effusion. Aorta Normal diameter of the aortic root and ascending thoracic aorta. IVC Normal IVC diameter. CONCLUSIONS Normal left ventricular size, systolic function and ejection fraction 67%. Indeterminate left ventricular diastolic function due to discordant parameters. Normal right ventricular size and systolic function. No significant valvular abnormalities. Mild pulmonary hypertension, PASP 47 mmHg Preston Grace MD, FACC (Electronically Signed) Final Date: 19 February 2025 20:04 S
== END 2025-02-12 13:59 | disposition home or self-care (01) ==
LOC: RAD 13:59
PROVIDERS: PCP Nurse Practitioner Family; Visit Provider Internal Medicine Cardiovascular Disease
DX: R06.02 Shortness of breath (principal); R93.1 Abnormal findings on diagnostic imaging of heart and coronary circulation; I51.7 Cardiomegaly; I27.20 Pulmonary hypertension, unspecified
CPT/HCPCS: 93306

== ENCOUNTER 2025-04-12 09:23 | Emergency (ER) | payer MEDICARE, MEDICAID, SELFPAY ==
--- NOTE | 2025-04-12 09:24 | ECG_ITS ---
[facility] Test Date: 2025-04-12 Pat Name: Beth Trinh Department: Room: Gender: Female Counter Maker: : 1965 Requested By: Kd Aggarwal Order Number: [id number] Reading MD: Measurements Intervals [place] Rate: 77 P: 78 SD: 180 QRS: 65 QRSD: 89 T: 71 QT: 373 QTc: 425 Interpretive Statements SINUS RHYTHM POSSIBLE RIGHT VENTRICULAR CONDUCTION DELAY [RSR (QR) IN V1/V2] MODERATE ST DEPRESSION [0.05+ mV ST DEPRESSION] No previous ECG available for comparison [id number]
--- NOTE | 2025-04-12 09:24 | CT_ITS ---
WS: [id number] CT scan of the head, 04/12/2025 Clinical Data: Symptoms of acute stroke Comparison: None. DLP: 861.[address] scans at [facility] use at least one of these dose optimization techniques: automated exposure control; mA and/or kV adjustment per patient size (includes targeted exams where dose is matched to clinical indication); or iterative reconstruction. Findings: The ventricular system is normal without shift. No recent infarct or hemorrhage is seen. There are no abnormal intracerebral masses. The cerebellum and brainstem are not remarkable. Bony windows of the skull and skull base show no fractures or erosions. The mastoid air cells, internal auditory canals, sella turcica, intraorbital contents, and paranasal sinuses are unremarkable. CT/CT head thrombolytic [id number] Impression: Negative CT scan of the head
--- OUTSIDE RECORDS SUMMARY | 2025-04-12 09:31 | XMS_ITS | Encounter Summary ---
Author Organization [facility] Address [address] [place] [address] Care Team Providers Care Unix Developer Name Role Phone Diego Samaniego DO Primary Care Provider Unava ilable Encounter Details Date Type Department Care Team (Late st Contact Info) Description 05/06/2020 Ancillary Orders [facility] Orthopedics[address] [place] [address] Samir Garcia [address] [place] [phone] Left shoulder pain, unspecified chronicity Social History Tobacco Use Types Packs/Day Years Used Date Smoking Tobacco: Smoker, Current Status Unknown Cigarettes Smokeless Tobacco: Never Alcohol Use Standard Drinks/Week Comments No 0 (1 standard drink = 0.6 oz pur e alcohol) Comments No Sex and Gender Information Value Date Recorded Sex Assigned at Not on file Legal Sex Female 5:09 AM JOURNALIST Gender Identity Not on file Sexual Orientation Not on file COVID-19 Exposure Response Date Recorded In the last month, have you been in contact with someone who was confirmed or suspected to have Coronavirus / COVID-19? 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 She has osteophytes on the glenoid and humeral side. Samir Garcia D.O. [facility] Orthopedics [facility] MARIA EUGENIA/marina Samir Garcia DO DIAGNOSTIC IMAGING ORDERAB LES Final Result documented in this encounter Visit Diagnoses Diagnosis Left shoulder pain, unspecified chronicity Left shoulder pain, unspecified chronicity documented in this encounter Additional Health Concerns Infection Onset Date Last Indicated Resolved Time MRSA Comment:Axilla 12/16/10 12/22/2010 12/22/2010 documented as of this encounter Care Teams Unix Developer Relationship Specialty Start Date End Date Diego Samaniego DO PCP - General Family Practice 04/27/18 documented as of this encounter
--- OUTSIDE RECORDS SUMMARY | 2025-04-12 09:31 | XMS_ITS | Clinical Summary ---
Author Organization [facility] Address [address] [place] [address] Care Team Providers Care Cover Stitch Machine Operator Name Role Phone Diego Samaniego DO Primary [...] on file Legal Sex Female 5:09 AM SEARCH STRATEGIST Gender Identity Not on file Sexual Orientation Not on file Last Filed Vital Signs Vital Sign Reading Time Taken Comments Blood Pressure 125/75 08/06/2020 3:21 PM CDT Pulse 78 08/06/2020 3:21 PM CDT Temperature 36.7 C (98.1 F) 04/08/2020 5:08 PM SEARCH STRATEGIST Respiratory Rate 18 04/08/2020 6:39 PM SEARCH STRATEGIST Oxygen Saturation 94% 08/06/2020 3:21 PM CDT [...] Trinh Relation to Subscriber:Self Name:Beth Trinh Payer ID:[id number] Group ID:Not on file Type:Medicaid Address: [address] Care Teams Cover Stitch Machine Operator Relationship Specialty Start Date End Date Diego Samaniego DO PCP - General Family Practice 04/27/18
--- OUTSIDE RECORDS SUMMARY | 2025-04-12 09:31 | XMS_ITS | Encounter Summary ---
Author Organization [facility] Address [address] [place] [address] Care Team Providers Care Certified Ophthalmic Technologist Name Role Phone Diego Samaniego DO Primary Care Provider Unava ilable Encounter Details Date Type Department Care Team (Late st Contact Info) Description 02/03/2008 Emergency [facility] Emergency Department [address] [place] [address] Ed, Physician NO ADDRESS ON FILE Lavinia Lopez MD [address] [place] [address] Sobeida Sawant FNP NO ADDRESS ON FILE Social History Tobacco Use Types Packs/Day Years Used Date Smoking Tobacco: Never Assessed Comments Unknown Sex and Gender Information Value Date Recorded Sex Assigned at Not on file 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 Date Signed: 02/04/08 [facility] Procedure Note Alfie Metzger Kaila - [...] By: Lay Metzger M.D. Date Signed: 02/04/08 [facility] Lavinia Lopez MD DIAGNOSTIC IMAGING ORDERAB LES Final Result * LIPASE (02/03/2008 4:07 PM CDT) Pathologist [facility] LIPASE 40 6 - 51 U/L [facility] Blood specimen (specimen) 02/03/2008 4:07 PM CDT 02/03/2008 5:07 PM CDT Lavinia Lopez MD CHEMISTRY ORDERABLES Final Result Performing Organization Address [facility] Phone Number INTERFACE SYSTEM Refer to clinic/hospital department [facility] CLIA# [id number] [address] [place] [id number] * (ABNORMAL) BASIC METABOLIC PANEL PLUS (02/03/2008 4:07 PM CDT) [facility] ALT 20 4 - 36 IU/L [facility] ALBUMIN 4.4 3.5 - 5.0 g/dL [facility] ALKALINE PHOSPHATASE 104(H) 25 - 100 U/L [facility] BILIRUBIN TOTAL 0.3 0.3 - 1.2 mg/dL [facility] TOTAL PROTEIN 6.8 6.3 - 8.2 g/dL [facility] AST 18 8 - 33 U/L [facility] Blood specimen (specimen) 02/03/2008 4:07 PM CDT 02/03/2008 5:07 PM CDT us Lavinia Lopez MD CHEMISTRY ORDERABLES Final Result Performing Organization Address [facility] Phone Number INTERFACE SYSTEM Refer to clinic/hospital department [facility] CLIA# [id number] [address] [place] [phone] * BASIC METABOLIC PANEL (02/03/2008 4:07 PM CDT) Pathologist [facility] SODIUM 144 136 - 145 mEq/L [facility] ANION GAP 10 9 - 20 mEq/L [facility] BUN 13 7 - 17 mg/dL [facility] CO2 30 22 - 32 mmol/l [facility] POTASSIUM 3.7 3.5 - 5.0 mEq/L [facility] OSMOLALITY, CALCULATED 294 275 - 295 mOsm/Kg [facility] CREATININE 1.1 0.7 - 1.2 mg/dL [facility] CALCIUM 9.7 8.4 - 10.5 mg/dL [facility] GLUCOSE 88 70 - 110 mg/dL [facility] CHLORIDE 108 95 - 110 mEq/L [facility] Blood specimen (specimen) 02/03/2008 4:07 PM CDT 02/03/2008 4:49 PM CDT us Lavinia Lopez MD CHEMISTRY ORDERABLES Final Result Performing Organization Address City/State/[facility] Co de Phone Number INTERFACE SYSTEM Refer to clinic/hospital department [facility] CLIA# [id number] [address] [place] [address] * (ABNORMAL) CBC WITH DIFFERENTIAL (02/03/2008 4:07 PM CDT) HEMOGLOBIN 14.5 12.0 - 16.0 g/dL [facility] RDW 14.4 11.0 - 14.5 % [facility] MONOCYTE ABSOLUTE 0.6 0.1 - 0.6 K/ul [facility] MONOCYTES 7.2 2.0 - 10.0 % [facility] WBC 8.9 4.5 - 11.0 K/ul [facility] MCH 30.7 27.0 - 34.0 pg [facility] NEUTROPHIL ABSOLUTE 4.0 2.0 - 8.0 K/ul [facility] NEUTROPHILS 44.4 42.2 - 75.2 % [facility] HEMATOCRIT 44.3 36.0 - 46.0 % [facility] EOSINOPHILS 6.0 0.0 - 7.0 % [facility] PLATELETS 448(H) 140 - 440 K/ul [facility] EOSINOPHIL ABSOLUTE 0.5 0.0 - 0.7 K/ul [facility] RBC 4.72 4.20 - 5.40 Mil/ul [facility] LYMPHOCYTES 41.6 24.0 - 44.0 % [facility] MCHC 32.7 30.0 - 35.0 g/dL [facility] LYMPHOCYTE ABSOLUTE 3.7 1.2 - 4.0 K/ul [facility] MCV 93.9 84.0 - 103.0 Fl [facility] MPV 10.5 8.9 - 12.8 Fl [facility] BASOPHILS ABSOLUTE 0.1 0.0 - 0.2 K/ul [facility] BASOPHILS 0.8 0.0 - 1.0 % [facility] Blood specimen (specimen) 02/03/2008 4:07 PM CDT 02/03/2008 4:49 PM CDT Lavinia Lopez MD HEMATOLOGY ORDERABLES Mag l Result Performing Organization Address [facility] Phone Number INTERFACE SYSTEM Refer to clinic/hospital department [facility] CLIA# [id number] [address] [place] [phone] * PTT (02/03/2008 4:07 PM CDT) PTT 32.7 22.5 - 36.5 Secs [facility] Comment: Therapeutic Range: Hi-level PE/DVT heparin [...] ORDERABLES Mag l Result Performing Organization Address [facility] Phone Number INTERFACE SYSTEM Refer to clinic/hospital department [facility] CLIA# [id number] [address] [place] [address] * PROTIME-INR (02/03/2008 4:07 PM CDT) PROTIME 14.7 12.8 - 15.8 Secs [facility] Comment:As of 2007 not e change in normal range. INR 1.0 [facility] Comment: Expected Values for INR: DVT/PE Goal INR 2.5; range 2.0 - 3.0 Valve Replacement Tissue Goal INR 2.5; range 2.0 - 3.0 Mechanical Goal INR 3.0; range 2.5 - 3.5 POST-ND Goal INR 2.5; range 2.0 - 3.0 or Goal 3.0; range 2.5 - 3.5 Atrial Fibrillation Goal INR 2.5; range 2.0 - 3.0 Ischemic Stroke Goal INR 2.5; range 2.0 - 3.0 For additional information see Guidelines for Anticoagulation available from the pharmacy Marissa Nicholas D. [phone] Blood specimen (specimen) 02/03/2008 4:07 PM CDT 02/03/2008 4:49 PM CDT Lavinia Lopez MD HEMATOLOGY ORDERABLES Mag l Result Performing Organization Address [facility] de Phone Number INTERFACE SYSTEM Refer to clinic/hospital department [facility] CLIA# [id number] [address] [place] [address] * CARDIAC ENZYMES (02/03/2008 4:07 PM CDT) Pathologist [facility] TROPONIN I <0.1 0.0 - 1.3 ng/mL [facility] CKMB 0.7 0.0 - 5.0 ng/mL [facility] Blood specimen (specimen) 02/03/2008 4:07 PM CDT 02/03/2008 4:49 PM CDT us Lavinia Lopez MD CHEMISTRY ORDERABLES Final Result Performing Organization Address City/[facility]/ZIP Co de Phone Number INTERFACE SYSTEM Refer to clinic/hospital department [facility] CLIA# [id number] [address] [place] [address] documented in this encounter Visit Diagnoses Not on filedocumented in this encounter Additional Health Concerns Infection Onset Date Last Indicated Resolved Time MRSA Comment:Axilla 12/16/10 12/22/2010 12/22/2010 R/O COVID-19 03/30/2020 03/30/2020 03/30/2020 2:42 PM INFORMATICS SPECIALIST documented as of this encounter Care Teams Certified Ophthalmic Technologist Relationship Specialty Start Date End Date Diego Samaniego DO PCP - General Family Practice 04/27/18 documented as of this encounter
--- OUTSIDE RECORDS SUMMARY | 2025-04-12 09:31 | XMS_ITS | Encounter Summary ---
Author Organization [facility] Address [address] [place] [address] Care Team Providers Care Flat Knitter Name Role Phone Diego Samaniego DO Primary Care Provider Unava ilable Reason for Referral * CT Scan (Routine) - Closed Specialty Diagnoses / Procedures Referred By Contac t Referred To Contact Radiology Diagnoses Abnormal findings on diagnostic imaging of other specified body structures Procedures CT CHEST WO CONTRAST Anaya Gomez FNP [address] [place] [address] Phone: tel: fax: [facility] [address] [address] Phone: tel: fax: Referral ID Status Reason Start Date Expiration Date V isits Requested Visits Authorized [id number] Closed [facility] TO SCHEDULE (SGF) 08/06/2019 11/03/2019 1 1 Encounter Details Date Type Department Care Team (Latest Contact Info) Description 08/03/2019 Ancillary Orders [facility] Pre-Registration [place] CALL TO MAKE APPOINTMENT ONLY [address] [place] [address] Anaya Gomez FNP [address] [place] [address] Abnormal findings on diagnostic imaging [...] on file 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 Unchanged pericardial cyst. Anaya Gomez [facility] CT ORDERABLES Final Result documented in this encounter Visit Diagnoses Diagnosis Abnormal findings on diagnostic imaging of other specified body structures Abnormal findings on diagnostic imaging of other specified body structures documented in this encounter Additional Health Concerns Infection Onset Date Last Indicated Resolved Time MRSA Comment:Axilla 12/16/10 12/22/2010 12/22/2010 R/O COVID-19 03/30/2020 03/30/2020 03/30/2020 2:42 PM CRUCIBLE PACKER documented as of this encounter Care Teams Flat Knitter Relationship Specialty Start Date End Date Diego Samaniego DO PCP - General Family Practice 04/27/18 documented as of this encounter
--- NOTE | 2025-04-12 09:35 | W.ED.NEUROSD ---
HPI - Neuro Symptoms/Deficit General: Chief Complaint: Neuro Symptoms/Deficit Stated Complaint: stroke alert Time Seen by Provider: 04/12/25 09:24 History of Present Illness: 59-year-old female who presents to the ED with complaints of weakness and shaking. She has a tremor on her right side. She states her blood pressure has been elevated. She recently had a CT at an outside facility and states she was told that she had a stroke she is concerned she is having another stroke. She came to the ED as a rapid response from the [facility]. she is awake and alert. When initially seen the patient in the CT department she was moving all of her extremities. Initial NIH of 1 for some mild dysarthria. She does have a tremor but it resolves with any focused activity and is very variable. Associated symptoms: Deny chest pain Related Data Home Medications ?Medication ?Instructions ?Recorded ?Confirmed acetaminophen 325 mg tablet 650 mg PO QID PRN Fever Or Pain 07/17/24 04/12/25 (Tylenol) potassium gluconate 600 mg (99 mg) 600 mg PO DAILY 07/17/24 04/12/25 tablet oxygen 01/08/25 04/12/25 albuterol sulfate 90 mcg/actuation 2 puff inhalation Q6H PRN 04/12/25 04/12/25 aerosol inhaler Shortness Of Breath atorvastatin 20 mg tablet (Lipitor) 20 mg PO BEDTIME 04/12/25 04/12/25 budesonide 0.5 mg/2 mL suspension 0.5 mg inhalation BID 04/12/25 04/12/25 for nebulization famotidine 40 mg tablet 40 mg PO BID 04/12/25 04/12/25 fluticasone furoate 100 1 inh inhalation DAILY 04/12/25 04/12/25 mcg-vilanterol 25 mcg/dose inhalation powder (Breo Ellipta) omeprazole 40 mg capsule,delayed 40 mg PO BID 04/12/25 04/12/25 release revefenacin 175 mcg/3 mL solution 175 mcg inhalation DAILY 04/12/25 04/12/25 for nebulization (Yupelri) umeclidinium 62.5 mcg/actuation 1 inh inhalation DAILY 04/12/25 04/12/25 blister powder for inhalation (Incruse Ellipta) Previous Rx's ?Medication ?Instructions ?Recorded metoprolol succinate 25 mg 25 mg PO DAILY #90 tabs 01/19/24 tablet,extended release 24 hr varenicline tartrate 0.5 mg (11)-1 See Rx Instructions PO PER PKG DIR 01/09/25 mg (42) tablets in a dose pack #53 ea (Chantix Starting Month Box) Nebulizer #1 ea 01/10/25 aspirin 81 mg tablet,delayed 81 mg PO DAILY #90 tabs 01/18/25 release (Adult Low Dose Aspirin) denosumab 60 mg/mL subcutaneous 60 mg SUBCUT .i0ovoiu #1 mL 01/21/25 syringe (Prolia) amlodipine 5 mg tablet 5 mg PO DAILY #30 tabs 04/12/25 Allergies Allergy/AdvReac Type Severity Reaction Status Date / Time No Known Allergies Allergy Verified 04/12/25 08:52 Review of Systems Const: Denies: fever(s) or chills Card: Denies: chest pain Resp: Denies: dyspnea GI: Denies: abdominal pain : Denies: dysuria, urinary frequency or urinary urgency Musc: Denies: neck pain or back pain Skin/Breast: Denies: rash PFSH ED PFSH: Medical History (Updated 04/12/25 @ 10:46 by Kd Valenzuela DO) Thrombocytosis, unspecified Hiatal hernia COPD (chronic obstructive pulmonary disease) Smoker Chronic respiratory failure Anxiety Surgical History History of repair of hiatal hernia History of cholecystectomy History of tonsillectomy History of arthroplasty of finger of right hand History of abdominal surgery History of breast biopsy Social History Smoking and tobacco/nicotine status: current every day tobacco/nicotine user (1/2 ppd X 44 years) cigarettes Alcohol intake: current Alcohol intake frequency: holidays/special occasions only NIH stroke score NIHSS: Level Of Consciousness - 1a: 0 Level Of Consciousness Questions - 1b: Both Correct Level Of Consciousness Commands - 1c: Both Correct Best Gaze - 2: Normal Visual Ha - 3: No Visual Loss Facial Palsy - 4: Normal Motor Arm Right - 5: No Drift Motor Arm Left - 5: No Drift Motor Leg Right - 6: No Drift Motor Leg Left - 6: No Drift Limb Ataxia - 7: Absent Sensory - 8: Normal Best Language - 9: No Aphasia Dysarthia - 10: Mild/Moderate Dysarthia Extinction And Inattention - 11: 0 Score: Total Score: 1 Physical Exam Const: COMMON NORMALS: no acute distress GENERAL APPEARANCE: cooperative and comfortable ORIENTATION/CONSCIOUSNESS: Yes awake, Yes oriented to person, Yes oriented to place and Yes oriented to time HENMT: COMMON NORMALS: normocephalic, atraumatic and hearing grossly normal bilaterally HEAD & SCALP: normocephalic and atraumatic Resp: COMMON NORMALS: normal respiratory effort, No retractions, No use of accessory muscles and clear to auscultation bilaterally AUSCULTATION: clear to auscultation bilaterally Cardio: COMMON NORMALS: regular rate, regular rhythm and No murmurs present (Cardio) RATE: regular rate RHYTHM: regular rhythm GI: COMMON NORMALS: Soft to palpation and No hepatosplenomegaly present AUSCULTATION: Yes normoactive bowel sounds PALPATION: Yes Soft to palpation, No Tenderness to palpation present (GI), No Guarding due to palpation present (GI) and Yes No hepatosplenomegaly present Extremity: COMMON NORMALS: normal to inspection, capillary refill normal, no clubbing, cyanosis or edema, no calf tenderness and no pedal edema Neuro: SENSORIUM/ORIENTATION: Yes oriented to person, Yes oriented to place and Yes oriented to time Skin: COMMON NORMALS: no rashes or lesions noted GENERAL SKIN EXAM: no rashes or lesions noted Course Vital Signs: Vital signs: Vital Signs Temperature 97.7 F 04/12/25 09:41 Pulse Rate 77 04/12/25 11:05 Respiratory Rate 19 H 04/12/25 11:05 Blood Pressure 143/78 04/12/25 11:05 Pulse Oximetry 98 04/12/25 11:05 Oxygen Delivery Me thod Room Air 04/12/25 09:41 MDM - Neuro Symptoms/Deficit Medical Decision Making Medical decision making Social determinants: None I reviewed the patient's medical record. I reviewed the patient's current home meds. Alternate historians: None Differential diagnosis: CVA, TIA, conversion disorder Lab Review: Labs reviewed CBC unremarkable PT PTT normal. Chemistry showed glucose of 132 initial [id number] glucose of patient rise is 127 the remainder of her chemistries are normal urine is also normal. Urine tox positive for benzodiazepines and marijuana Imaging: CT head unremarkable no acute findings, Discussed with radiology Assessment of risk Level of risk: Low Hospitalization considerations: After initial evaluation stroke workup undertaken may need hospitalization pending results Reexamination: All symptoms have resolved speech resolved patient ambulatory without any ataxia or difficulty with balance Assessment and plan: Patient very abnormal presentation with irregular tremor In her right arm and leg. With distraction or task assignment tremor resolves. No interventions taken patient's symptoms have completely resolved at this point. Believe patient had conversion disorder states he has had difficulty with anxiety in the past we will discharge patient home have her follow-up with her primary care doctor return if she has further problems. Lab Data 04/12/25 09:35 04/12/25 09:[address] 04/12/25 09:24 Impression: Negative CT scan of the head Laboratory Results WBC 8.52 10^3/uL (3.29-11.43) 04/12/25 09:35 RBC 4.94 10^6/uL (3.85-5.65) 04/12/25 09:35 Hgb 15.00 g/dL (11.27-16.99) 04/12/25 09:35 Hct 46.8 % (36-47) 04/12/25 09:35 MCV 94.7 fl (85-98) 04/12/25 09:35 MCH 30.4 pg (27-33) 04/12/25 09:35 MCHC 32.1 g/dL (30-55) 04/12/25 09:35 RDW 13.5 % (12.1-15.1) 04/12/25 09:35 Plt Count 387 10^3/cmm (157-399) 04/12/25 09:35 MPV 10.0 fL (7.4-10.4) 04/12/25 09:35 Neut % (Auto) 53.8 % 04/12/25 09:35 Lymph % (Auto) 32.2 % 04/12/25 09:35 [place] % (Auto) 9.5 % 04/12/25 09:35 Eos % (Auto) 3.2 % 04/12/25 09:35 Baso % (Auto) 1.1 % 04/12/25 09:35 Neut # (Auto) 4.59 10^3/uL (1.8-7.7) 04/12/25 09:35 Lymph # (Auto) 2.7 10^3/uL (0.8-4.8) 04/12/25 09:35 [place] # (Auto) 0.8 10^3/uL (0.2-0.9) 04/12/25 09:35 Eos # (Auto) 0.3 10^3/uL (0.0-0.8) 04/12/25 09:35 Baso # (Auto) 0.1 10^3/uL (0.0-0.1) 04/12/25 09:35 Nucleated RBC % (auto) 0 % 04/12/25 09:35 Nucleated RBCs # 0.0 /100WBC 04/12/25 09:35 PT 13.00 SECONDS (12.1-14.9) 04/12/25 09:35 INR 0.92 (0.8-1.2) 04/12/25 09:35 APTT 30.7 SECONDS (23.9-36.7) 04/12/25 09:35 Sodium 141 mmol/L (136-145) 04/12/25 09:35 Potassium 4.1 mmol/L (3.5-5.1) 04/12/25 09:35 Chloride 105 mmol/L (98-107) 04/12/25 09:35 Carbon Dioxide 26 mmol/L (22-29) 04/12/25 09:35 Anion Gap 14.1 (5-19) 04/12/25 09:35 BUN 9 mg/dL (6-20) 04/12/25 09:35 Creatinine 0.8 mg/dL (0.5-0.9) 04/12/25 09:35 GFR Calculation 73.4 mL/min (90-130) L 04/12/25 09:35 Glucose 132 mg/dL (65-115) H 04/12/25 09:35 POC Glucose 127 mg/dL (70-110) H 04/12/25 09:32 Calculated Osmolality 293 mOsm/kg (285-295) 04/12/25 09:35 Calcium 9.3 mg/dL (8.5-10.5) 04/12/25 09:35 Total Bilirubin 0.4 mg/dL (0.15-1.2) 04/12/25 09:35 AST 12 U/L (0-32) 04/12/25 09:35 ALT 8 U/L (0-33) 04/12/25 09:35 Alkaline Phosphatase 93 U/L (35-105) 04/12/25 09:35 Total Protein 6.7 g/dL (6.6-8.7) 04/12/25 09:35 Albumin 4.3 g/dL (3.5-5.2) 04/12/25 09:35 Globulin 2.4 g/dL (1.3-4.6) 04/12/25 09:35 Urine Color Yellow (Yellow) 04/12/25 10:00 Urine Appearance Clear (CLEAR) 04/12/25 10:00 Urine pH 6.5 (5-7) 04/12/25 10:00 Ur Specific [place] 1.015 (1.005-1.030) 04/12/25 10:00 Urine Protein Negative (Negative) 04/12/25 10:00 Urine Glucose (UA) Negative (Normal) 04/12/25 10:00 Urine Ketones Negative (Negative) 04/12/25 10:00 Urine Blood Non-haemolysed trace (Negative) 04/12/25 10:00 Urine Nitrate Negative (Negative) 04/12/25 10:00 Urine Bilirubin Negative (Negative) 04/12/25 10:00 Urine Urobilinogen 0.2 mg/dL (Negative) 04/12/25 10:00 Ur Leukocyte Esterase Negative (Negative) 04/12/25 10:00 Urine RBC 3-5 /hpf (0-2) 04/12/25 10:00 Urine WBC 0-5 /hpf (0-5) 04/12/25 10:00 Ur Squamous Epith Cells 0-5 /hpf (0-5) 04/12/25 10:00 Amorphous Sediment Not Reportable 04/12/25 10:00 Urine Bacteria None seen /hpf (NONE) 04/12/25 10:00 Hyaline Casts 0-4 /lpf H 04/12/25 10:00 Urine Opiates Screen Negative ng/mL (Negative) 04/12/25 10:00 Ur Barbiturates Screen Negative ng/mL (Negative) 04/12/25 10:00 Ur Phencyclidine Scrn Negative ng/mL (Negative) 04/12/25 10:00 Ur Amphetamines Screen Negative ng/mL (Negative) 04/12/25 10:00 U Benzodiazepines Scrn Positive ng/mL (Negative) H 04/12/25 10:00 Urine Cocaine Screen Negative ng/mL (Negative) 04/12/25 10:00 U Marijuana (THC) Screen Positive ng/mL (Negative) H 04/12/25 10:00 All radiology interpretation(s) finalized by discharge Discharge Plan Discharge Patient Disposition: Home Clinical Impression: Conversion disorder with abnormal movement, Smoker, Anxiety, HTN (hypertension) Condition: Stable Prescriptions: New amlodipine 5 mg tablet 5 mg PO DAILY Qty: 30 0RF No Action metoprolol succinate 25 mg tablet extended release 24 hr 25 mg PO DAILY Qty: 90 3RF varenicline tartrate [Chantix Starting Month Box] 0.5 mg (11)- 1 mg (42) tablets,dose pack See Rx Instructions PO PER PKG DIR Qty: 53 0RF Rx Instructions: PO PER PKG DIR Prolia 60 mg/mL syringe 60 mg SUBCUT .[id number] Qty: 1 1RF (DME) oxygen 0 .Route .MEDSUPPLY aspirin [Adult Low Dose Aspirin] 81 mg tablet,delayed release (DR/EC) 81 mg PO DAILY Qty: 90 3RF (DME) Nebulizer See Rx Instructions .Route .MEDSUPPLY Qty: 1 0RF Rx Instructions: As directed acetaminophen [Tylenol] 325 mg Tablet 650 mg PO QID PRN (Reason: Fever Or Pain) potassium gluconate 600 mg (99 mg) Tablet 600 mg PO DAILY albuterol sulfate 90 mcg/actuation HFA aerosol inhaler 2 puff inhalation Q6H PRN (Reason: Shortness Of Breath) famotidine 40 mg tablet 40 mg PO BID omeprazole 40 mg capsule,delayed release(DR/EC) 40 mg PO BID budesonide 0.5 mg/2 mL suspension for nebulization 0.5 mg inhalation BID fluticasone furoate-vilanterol [Breo Ellipta] 100-25 mcg/dose blister with device 1 inh INHALATION DAILY Incruse Ellipta 62.5 mcg/actuation blister with device 1 inh INHALATION DAILY Yupelri 175 mcg/3 mL solution for nebulization 175 mcg INHALATION DAILY atorvastatin [Lipitor] 20 mg tablet 20 mg PO BEDTIME Discharge Orders: Discharge ED (Routine); Ordered 04/12/25 Ordered By: Kd Valenzuela Referrals: Lorraine Braden NP [Primary Care Provider, Family Practice] Patient Instructions: Opioid Safety, Pain Management, Patient Portal & Angelika Instructions Activity Restrictions/Additional Instructions: Thank you for choosing [facility] for your healthcare needs today. It is very important that you follow up as instructed or that you return to the Emergency Department should you have concerns or if your condition changes or worsens in any way. Emergency department visits are focused on emergent conditions, in some cases you may require further evaluation on an outpatient basis. You are seen in the emergency room with concern for stroke CT of your head was negative NIH scoring did not show signs of a stroke. Your symptoms resolved with Ativan and blood pressure control. Do recommend that you continue to take aspirin daily continue to take your metoprolol daily and we added amlodipine 5 mg daily follow-up your primary care doctor within the next week (Please note that included in your discharge packet is information concerning opioid safety and pain management. 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
[2025-04-12] MEDS: LORazepam 2 mg/mL INJ 1 mL 1 MG IVP (09:38)
[2025-04-12 09:40] LABS: Hematocrit 46.8 % (36-47); Hemoglobin 15.00 g/dL (11.27-16.99); Mean Corpuscular HGB Conc 32.1 g/dL (30-55); Mean Corpuscular Hemoglobin 30.4 pg (27-33); Mean Corpuscular Volume 94.7 fl (85-98); Nucleated Red Blood Cells % 0 %; Platelet Count 387 10^3/cmm (157-399); Red Blood Count 4.94 10^6/uL (3.85-5.65); White Blood Count 8.52 10^3/uL (3.29-11.43)
[2025-04-12 09:41] VITALS: BP 172/127; PULSE 83; RESP 30; TEMP 36.5; O2SAT 100
[2025-04-12 09:52] VITALS: BP 159/90
[2025-04-12 09:53] LABS: INR 0.92 (0.8-1.2); Prothrombin Time 13.00 SECONDS (12.1-14.9)
[2025-04-12 09:54] LABS: Partial Thromboplastin Time 30.7 SECONDS (23.9-36.7)
[2025-04-12 09:58] LABS: Alanine Aminotransferase 8 U/L (0-33); Albumin Level 4.3 g/dL (3.5-5.2); Alkaline Phosphatase 93 U/L (35-105); Anion Gap 14.1 (5-19); Aspartate Amino Transferase 12 U/L (0-32); Blood Urea Nitrogen 9 mg/dL (6-20); Calcium 9.3 mg/dL (8.5-10.5); Carbon Dioxide 26 mmol/L (22-29); Chloride 105 mmol/L (98-107); Globulin 2.4 g/dL (1.3-4.6); Glucose 132 mg/dL (65-115); Osmolality Calculated 293 mOsm/kg (285-295); Potassium 4.1 mmol/L (3.5-5.1); Sodium 141 mmol/L (136-145); Total Protein 6.7 g/dL (6.6-8.7)
[2025-04-12 10:13] LABS: Glucose Urine UA Negative (Normal); Nitrate Urine Negative (Negative); Specific Gravity, Urine 1.015 (1.005-1.030)
[2025-04-12 10:18] LABS: Add Urine Microscopic? YES
[2025-04-12 10:21] VITALS: BP 133/90; PULSE 74; O2SAT 100
[2025-04-12 10:22] LABS: PCP Screen Urine Negative (Negative)
[2025-04-12 11:05] VITALS: BP 143/78; PULSE 77; RESP 19; O2SAT 98
== END 2025-04-12 11:05 | disposition home or self-care (01) ==
PROVIDERS: Emergency Provider Family Medicine; PCP Nurse Practitioner Family
DX: F44.4 Conversion disorder with motor symptom or deficit (principal); F17.210 Nicotine dependence, cigarettes, uncomplicated; F41.9 Anxiety disorder, unspecified; I10 Essential (primary) hypertension; Z79.82 Long term (current) use of aspirin; J44.9 Chronic obstructive pulmonary disease, unspecified
CPT/HCPCS: 36415; 36416; 70450; 80053; 80306; 81001; 82962; 85025; 85610; 85730; 93005; 96374; 99284; J2060